=== PATIENT | female | born 1950 | race Caucasian/White ===

== ENCOUNTER 2024-01-18 08:23 | Inpatient (IN) | payer BC, MEDICARE ==
--- NOTE | 2024-01-18 08:43 | ED ---
General Adult HPI - General Chief complaint: Recheck/Abnormal Lab/Rx Stated complaint: low blood sugar Time Seen by Provider: 01/18/24 08:30 Source: EMS Mode of arrival: EMS - History of Present Illness Initial comments: Dictation was produced using [employer] dictation software. please excuse any grammatical, word or spelling errors. Chief Complaint: 73-year-old female with hypoglycemia History of Present Illness: Patient 73-year-old female she was found at home unresponsive. EMS was called. According to EMS they checked her sugar and it was in the 30s. Patient given full amp of dextrose with increase of glucose along with improvement of mentation. Patient still malaised and lethargic and is a poor historian at this time. According EMS patient has a history of insul in-dependent diabetes Unable to obtain ROS secondary to mental status - Related Data Home Medications Medication Instructions Recorded Confirmed Acetaminophen Tab [Tylenol Tab] 500 mg PO Q6HR PRN 01/18/24 01/18/24 Apixaban [Eliquis] 5 mg PO BID 01/18/24 01/18/24 Aspirin 81 mg PO DIRECTED 01/18/24 01/18/24 Canagliflozin [Invokana] 300 mg PO DAILY 01/18/24 01/18/24 Cholecalciferol [Vitamin D3 (25 25 mcg PO DAILY 01/18/24 01/18/24 Mcg = 1000 Iu)] Clopidogrel [Plavix] 75 mg PO DAILY 01/18/24 01/18/24 Fenofibrate Nanocrystallized 145 mg PO DAILY 01/18/24 01/18/24 [Fenofibrate] Flecainide Acetate [Tambocor] 100 mg PO BID 01/18/24 01/18/24 Folic Acid 1 mg PO DAILY 01/18/24 01/18/24 Furosemide [Lasix] 20 mg PO DAILY 01/18/24 01/18/24 Gabapentin [Neurontin] 200 mg PO HS 01/18/24 01/18/24 Insulin Glargine,Hum.rec.anlog 30 units SQ HS 01/18/24 01/18/24 [Lantus Solostar Pen] Insulin Lispro [humaLOG Kwikpen] 10 unit SQ AC-TID 01/18/24 01/18/24 Insulin Lispro [humaLOG Kwikpen] See Protocol SQ AC-TID 01/18/24 01/18/24 Latanoprost [Latanoprost 0.005%] 1 drop BOTH EYES HS 01/18/24 01/18/24 Losartan [Cozaar] 50 mg PO DAILY 01/18/24 01/18/24 Melatonin 10 mg PO HS 01/18/24 01/18/24 Metoprolol Succinate (ER) [Toprol 100 mg PO BID 01/18/24 01/18/24 Xl] Naloxone HCl [Narcan] 4 mg NASAL ONCE PRN 01/18/24 01/18/24 Nitroglycerin Sl Tabs [Nitrostat] 0.4 mg SUBLINGUAL Q5M PRN 01/18/24 01/18/24 Omeprazole [PriLOSEC] 20 mg PO AC-BRKFST 01/18/24 01/18/24 Potassium Chloride [Klor-Con M10] 10 meq PO DAILY 01/18/24 01/18/24 Sertraline [Zoloft] 100 mg PO DAILY 01/18/24 01/18/24 Simvastatin [Zocor] 20 mg PO HS 01/18/24 01/18/24 oxyCODONE-APAP 5-325MG [Percocet 1 tab PO DAILY 01/18/24 01/18/24 5-325 mg] Allergies Allergy/AdvReac Type Severity Reaction Status Date / Time codeine Allergy Rash/Hives Verified 01/18/24 10:10 iodine Allergy Rash/Hives Verified 01/18/24 10:10 Review of Systems ROS Statement: Those systems with pertinent positive or pertinent negative responses have been documented in the HPI. ROS Other: All systems not noted in ROS Statement are negative. Past Medical History Past Medical History: Atrial Fibrillation, Diabetes Mellitus, Hypertension Additional Past Medical History / Comment(s): extensive cardiac history per EMS Past Surgical History: No Surgical Hx Reported Past Psychological History: No Psychological Hx Reported Smoking Status: Former smoker Past Alcohol Use History: None Reported Past Drug Use History: None Reported General Exam - General Exam Comments Initial Comments: PHYSICAL EXAM: General Impression: Alert and oriented x3, lethargic HEENT: Normocephalic atraumatic, extra-ocular movements intact, pupils equal and reactive to light bilaterally, mucous membranes moist. Cardiovascular: Heart regular rate and rhythm Chest: Able to complete full sentences, no retractions, no tachypnea Abdomen: abdomen soft, non-tender, non-distended, no organomegaly Musculoskeletal: Pulses present and equal in all extremities, no peripheral edema Motor: no focal deficits noted Neurological: CN II-XII grossly intact, no focal motor or sensory deficits noted Skin: Intact with no visualized rashes Psych: Normal affect and mood Course Vital Signs 01/18/24 01/18/24 01/18/24 08:25 08:36 09:15 Temperature 93.7 F L Pulse Rate 90 86 74 Respiratory 18 20 20 Rate Blood Pressure 113/77 92/60 102/72 O2 Sat by Pulse 95 94 L 99 Oximetry 01/18/24 01/18/24 01/18/24 09:44 10:40 11:16 Temperature 94.5 F L 95.0 F L 95.7 F L Pulse Rate 89 85 71 Respiratory 20 20 20 Rate Blood Pressure 131/84 99/59 106/93 O2 Sat by Pulse 97 94 L 98 Oximetry EKG Findings - EKG Comments: EKG Findings:: My EKG interpretation: Ventricular rate 86, A-fib, left bundle branch block, QRS 150, QTc 485. No [place] prolongation, no QTC prolongation, no ST or T-wave changes noted. No EKG for comparison. Overall this EKG is nonspecific Medical Decision Making - Medical Decision Making Was pt. sent in by a medical professional or institution ([facility], CAD PROGRAMMER, urgent care, hospital, or snf...) When possible be specific @ -No Did you speak to anyone other than the patient for history (EMS, parent, family, police, friend...)? What history was obtained from this source @ -History obtained from EMS as described above Did you review nursing and triage notes (agree or disagree)? Why? @ -I reviewed and agree with nursing and triage notes Were old charts reviewed (outside hosp., previous admission, EMS record, old EKG, old radiological studies, urgent care reports/EKG's, snf records)? Report findings @ -No old charts were reviewed Differential Diagnosis (chest pain, altered mental status, abdominal pain women, abdominal pain men, vaginal bleeding, musculoskeletal, weakness, fever, dyspnea, syncope, headache, dizziness, GI bleed, back pain, seizure, CVA, palpatations, mental health)? @ -Serious bacterial illness, insulin overdose, SIRS EKG interpreted by me (3pts min.). @ -See above X-rays interpreted by me (1pt min.). @ -Chest x-ray shows mild CHF CT interpreted by me (1pt min.). @ -CT scan of the brain shows no acute processes U/S interpreted by me (1pt. min.). @ -None done What testing was considered but not performed or refused? (CT, X-rays, U/S, la bs)? Why? @ -None What meds were considered but not given or refused? Why? @ -None Was smoking cessation discussed for >3mins.? @ -No Were there social determinants of health that impacted care today? How? (Homelessness, low income, unemployed, alcoholism, drug addiction, transportation, low edu. Level, literacy, decrease access to med. care, retirement, rehab)? @ -No Was there de-escalation of care discussed even if they declined (Discuss DNR or withdrawal of care, Hospice)? DNR status @ -No What co-morbidities impacted this encounter? (DM, HTN, Smoking, COPD, CAD, Cancer, CVA, ARF, Chemo, Hep., AIDS, mental health diagnosis, sleep apnea, morbid obesity)? @ -See clinical panel Was patient admitted / discharged? Hospital course, mention meds given and route, prescriptions, significant lab abnormalities, going to OR and other pertinent info. @ -73-year-old female who is insulin-dependent diabetic presents to the emergency department after being found unresponsive. She found to be hypo glycemic. Patient given dextrose with improvement of mentation. Vital signs upon arrival are within acceptable limits. Blood glucose on arrival was 88. Patient's glucose began to diminish. Patient ultimately put on dextrose drip. Laboratory evaluation obtained. CBC is unremarkable. Metabolic panel is negative. Urinalysis positive for UTI. Viral testing negative. Patient given antibiotics. Did you discuss the management of the patient with other professionals (professionals i.e. , PA, CAD PROGRAMMER, lab, RT, psych nurse, social worker palliative care, rail car welder, teacher, anti air warfare operations officer, mattress spring encaser)? Give summary @ -Case discussed with hospitalist Was critical care preformed (if so, how long)? @ -Yes, 33 minutes for unresponsive and life-threatening hypoglycemia Undiagnosed new problem with uncertain prognosis? @ -No Drug Therapy requiring intensive monitoring for toxicity (Heparin, Nitro, Insulin, Cardizem)? @ -No Were any procedures done? @ -No Diagnosis/symptom? Acute, or Chronic, or Acute on Chronic? Uncomplicated (without systemic symptoms) or Complicated (systemic symptoms)? @ -Critical hypoglycemia Side effects of treatment? @ -No Exacerbation, Progression, or Severe Exacerbation? @ -No Poses a threat to life or bodily function? How? (Chest pain, [place], ND, pneumonia, PE, COPD, DKA, ARF, appy, cholecystitis, CVA, Diverticulitis, Homicidal, Suicidal, threat to staff... and all critical care pts) @ -yes - Lab Data Result diagrams: 01/18/24 08:36 01/18/24 08:36 Lab Results 01/18/24 01/18/24 01/18/24 Range/Units 08:35 08:35 08:36 WBC 3.2 L (3.8-10.6) k/uL RBC 4.47 (3.80-5.40) m/uL Hgb 11.4 (11.4-16.0) gm/dL Hct 38.8 (34.0-46.0) % MCV 86.8 (80.0-100.0) fL MCH 25.6 (25.0-35.0) pg MCHC 29.5 L (31.0-37.0) g/dL RDW 18.6 H (11.5-15.5) % Plt Count 236 (150-450) k/uL MPV 7.5 Neutrophils % 75 % Lymphocytes % 12 % Monocytes % 10 % Eosinophils % 1 % Basophils % 1 % Neutrophils # 2.4 (1.3-7.7) k/uL Lymphocytes # 0.4 L (1.0-4.8) k/uL Monocytes # 0.3 (0-1.0) k/uL Eosinophils # 0.0 (0-0.7) k/uL Basophils # 0.0 (0-0.2) k/uL Hypochromasia Marked Anisocytosis Slight PT (10.0-12.5) sec INR (<1.2) APTT (22.0-30.0) sec Sodium (137-145) mmol/L Potassium (3.5-5.1) mmol/L Chloride (98-107) mmol/L Carbon Dioxide (22-30) mmol/L Anion Gap mmol/L BUN (7-17) mg/dL Creatinine (0.52-1.04) mg/dL Est GFR (CKD-EPI)AfAm (>60 ml/min/1.73 sqM) Est GFR (CKD-EPI)NonAf (>60 ml/min/1.73 sqM) Glucose (74-99) mg/dL POC Glucose (mg/dL) (70-110) mg/dL POC Glu Tire Regrooving Machine Operator ID Plasma Lactic Acid Frandy (0.7-2.0) mmol/L Calcium (8.4-10.2) mg/dL Magnesium (1.6-2.3) mg/dL Total Bilirubin (0.2-1.3) mg/dL AST (14-36) U/L ALT (4-34) U/L Alkaline Phosphatase (38-126) U/L Troponin I (0.000-0.034) ng/mL Total Protein (6.3-8.2) g/dL Albumin (3.5-5.0) g/dL Urine Color Yellow Urine Appearance Cloudy H (Clear) Urine pH 6.0 (5.0-8.0) Ur Specific [place] 1.024 (1.001-1.035) Urine Protein 1+ H (Negative) Urine Glucose (UA) 2+ H (Negative) Urine Ketones Negative (Negative) Urine Blood Small H (Negative) Urine Nitrite Negative (Negative) Urine Bilirubin Negative (Negative) Urine Urobilinogen <2.0 (<2.0) mg/dL Ur Leukocyte Esterase Large H (Negative) Urine RBC 19 H (0-5) /hpf Urine WBC >182 H (0-5) /hpf Hyaline Casts 8 H (0-2) /lpf Urine Mucus Rare H (None) /hpf Urine Yeast (Budding) Many H (None) /hpf Influenza Type A (PCR) Not Detected (Not Detectd) Influenza Type B (PCR) Not Detected (Not Detectd) RSV (PCR) Not Detected (Not Detectd) SARS-CoV-2 (PCR) Not Detected (Not Detectd) 01/18/24 01/18/24 01/18/24 Range/Units 08:36 08:36 08:36 WBC (3.8-10.6) k/uL RBC (3.80-5.40) m/uL Hgb (11.4-16.0) gm/dL Hct (34.0-46.0) % MCV (80.0-100.0) fL MCH (25.0-35.0) pg MCHC (31.0-37.0) g/dL RDW (11.5-15.5) % Plt Count (150-450) k/uL MPV Neutrophils % % Lymphocytes % % Monocytes % % Eosinophils % % Basophils % % Neutrophils # (1.3-7.7) k/uL Lymphocytes # (1.0-4.8) k/uL Monocytes # (0-1.0) k/uL Eosinophils # (0-0.7) k/uL Basophils # (0-0.2) k/uL Hypochromasia Anisocytosis PT 13.8 H (10.0-12.5) sec INR 1.3 H (<1.2) APTT 28.5 (22.0-30.0) sec Sodium 142 (137-145) mmol/L Potassium 4.2 (3.5-5.1) mmol/L Chloride 110 H (98-107) mmol/L Carbon Dioxide 28 (22-30) mmol/L Anion Gap 4 mmol/L BUN 47 H (7-17) mg/dL Creatinine 1.04 (0.52-1.04) mg/dL Est GFR (CKD-EPI)AfAm 63 (>60 ml/min/1.73 sqM) Est GFR (CKD-EPI)NonAf 54 (>60 ml/min/1.73 sqM) Glucose 87 (74-99) mg/dL POC Glucose (mg/dL) (70-110) mg/dL POC Glu Tire Regrooving Machine Operator ID Plasma Lactic Acid Frandy 1.0 (0.7-2.0) mmol/L Calcium 8.9 (8.4-10.2) mg/dL Magnesium 1.9 (1.6-2.3) mg/dL Total Bilirubin 0.7 (0.2-1.3) mg/dL AST 48 H (14-36) U/L ALT 17 (4-34) U/L Alkaline Phosphatase 177 H (38-126) U/L Troponin I (0.000-0.034) ng/mL Total Protein 6.1 L (6.3-8.2) g/dL Albumin 3.1 L (3.5-5.0) g/dL Urine Color Urine Appearance (Clear) Urine pH (5.0-8.0) Ur Specific [place] (1.001-1.035) Urine Protein (Negative) Urine Glucose (UA) (Negative) Urine Ketones (Negative) Urine Blood (Negative) Urine Nitrite (Negative) Urine Bilirubin (Negative) Urine Urobilinogen (<2.0) mg/dL Ur Leukocyte Esterase (Negative) Urine RBC (0-5) /hpf Urine WBC (0-5) /hpf Hyaline Casts (0-2) /lpf Urine Mucus (None) /hpf Urine Yeast (Budding) (None) /hpf Influenza Type A (PCR) (Not Detectd) Influenza Type B (PCR) (Not Detectd) RSV (PCR) (Not Detectd) SARS-CoV-2 (PCR) (Not Detectd) 01/18/24 01/18/24 01/18/24 Range/Units 08:36 08:38 08:50 WBC (3.8-10.6) k/uL RBC (3.80-5.40) m/uL Hgb (11.4-16.0) gm/dL Hct (34.0-46.0) % MCV (80.0-100.0) fL MCH (25.0-35.0) pg MCHC (31.0-37.0) g/dL RDW (11.5-15.5) % Plt Count (150-450) k/uL MPV Neutrophils % % Lymphocytes % % Monocytes % % Eosinophils % % Basophils % % Neutrophils # (1.3-7.7) k/uL Lymphocytes # (1.0-4.8) k/uL Monocytes # (0-1.0) k/uL Eosinophils # (0-0.7) k/uL Basophils # (0-0.2) k/uL Hypochromasia Anisocytosis PT (10.0-12.5) sec INR (<1.2) APTT (22.0-30.0) sec Sodium (137-145) mmol/L Potassium (3.5-5.1) mmol/L Chloride (98-107) mmol/L Carbon Dioxide (22-30) mmol/L Anion Gap mmol/L BUN (7-17) mg/dL Creatinine (0.52-1.04) mg/dL Est GFR (CKD-EPI)AfAm (>60 ml/min/1.73 sqM) Est GFR (CKD-EPI)NonAf (>60 ml/min/1.73 sqM) Glucose (74-99) mg/dL POC Glucose (mg/dL) 88 90 (70-110) mg/dL POC Glu Tire Regrooving Machine Operator Ramiro Del Angel IgnacioRamiro begum Plasma Lactic Acid Frandy (0.7-2.0) mmol/L Calcium (8.4-10.2) mg/dL Magnesium (1.6-2.3) mg/dL Total Bilirubin (0.2-1.3) mg/dL AST (14-36) U/L ALT (4-34) U/L Alkaline Phosphatase (38-126) U/L Troponin I <0.012 (0.000-0.034) ng/mL Total Protein (6.3-8.2) g/dL Albumin (3.5-5.0) g/dL Urine Color Urine Appearance (Clear) Urine pH (5.0-8.0) Ur Specific [place] (1.001-1.035) Urine Protein (Negative) Urine Glucose (UA) (Negative) Urine Ketones (Negative) Urine Blood (Negative) Urine Nitrite (Negative) Urine Bilirubin (Negative) Urine Urobilinogen (<2.0) mg/dL Ur Leukocyte Esterase (Negative) Urine RBC (0-5) /hpf Urine WBC (0-5) /hpf Hyaline Casts (0-2) /lpf Urine Mucus (None) /hpf Urine Yeast (Budding) (None) /hpf Influenza Type A (PCR) (Not Detectd) Influenza Type B (PCR) (Not Detectd) RSV (PCR) (Not Detectd) SARS-CoV-2 (PCR) (Not Detectd) 01/18/24 01/18/24 Range/Units 09:23 10:42 WBC (3.8-10.6) k/uL RBC (3.80-5.40) m/uL Hgb (11.4-16.0) gm/dL Hct (34.0-46.0) % MCV (80.0-100.0) fL MCH (25.0-35.0) pg MCHC (31.0-37.0) g/dL RDW (11.5-15.5) % Plt Count (150-450) k/uL MPV Neutrophils % % Lymphocytes % % Monocytes % % Eosinophils % % Basophils % % Neutrophils # (1.3-7.7) k/uL Lymphocytes # (1.0-4.8) k/uL Monocytes # (0-1.0) k/uL Eosinophils # (0-0.7) k/uL Basophils # (0-0.2) k/uL Hypochromasia Anisocytosis PT (10.0-12.5) sec INR (<1.2) APTT (22.0-30.0) sec Sodium (137-145) mmol/L Potassium (3.5-5.1) mmol/L Chloride (98-107) mmol/L Carbon Dioxide (22-30) mmol/L Anion Gap mmol/L BUN (7-17) mg/dL Creatinine (0.52-1.04) mg/dL Est GFR (CKD-EPI)AfAm (>60 ml/min/1.73 sqM) Est GFR (CKD-EPI)NonAf (>60 ml/min/1.73 sqM) Glucose (74-99) mg/dL POC Glucose (mg/dL) 151 H 105 (70-110) mg/dL POC Glu Tire Regrooving Machine Operator ID Ramiro Ignacio Cassandra Plasma Lactic Acid Frandy (0.7-2.0) mmol/L Calcium (8.4-10.2) mg/dL Magnesium (1.6-2.3) mg/dL Total Bilirubin (0.2-1.3) mg/dL AST (14-36) U/L ALT (4-34) U/L Alkaline Phosphatase (38-126) U/L Troponin I (0.000-0.034) ng/mL Total Protein (6.3-8.2) g/dL Albumin (3.5-5.0) g/dL Urine Color Urine Appearance (Clear) Urine pH (5.0-8.0) Ur Specific [place] (1.001-1.035) Urine Protein (Negative) Urine Glucose (UA) (Negative) Urine Ketones (Negative) Urine Blood (Negative) Urine Nitrite (Negative) Urine Bilirubin (Negative) Urine Urobilinogen (<2.0) mg/dL Ur Leukocyte Esterase (Negative) Urine RBC (0-5) /hpf Urine WBC (0-5) /hpf Hyaline Casts (0-2) /lpf Urine Mucus (None) /hpf Urine Yeast (Budding) (None) /hpf Influenza Type A (PCR) (Not Detectd) Influenza Type B (PCR) (Not Detectd) RSV (PCR) (Not Detectd) SARS-CoV-2 (PCR) (Not Detectd) Disposition Clinical Impression: Hypoglycemia Disposition: ADMITTED IP TO THIS [facility] Condition: Fair Is patient prescribed a controlled substance at d/c from ED?: No Referrals: Nonstaff,Physician [REFERRING] - 1-2 days Decision Time: 11:38
[2024-01-18 08:44] LABS: Anisocytosis Slight; Basophils % (A) 1 %; Eosinophils % (A) 1 %; HCT 38.8 % (34.0-46.0); HGB 11.4 gm/dL (11.4-16.0); Hypochromasia Marked; Lymphocytes # (A) 0.4 k/uL (1.0-4.8); Lymphocytes % (A) 12 %; MCH 25.6 pg (25.0-35.0); MCHC 29.5 g/dL (31.0-37.0); MCV 86.8 fL (80.0-100.0); Mean Platelet Volume 7.5; Monocytes # (A) 0.3 k/uL (0-1.0); Monocytes % (A) 10 %; Neutrophils # (A) 2.4 k/uL (1.3-7.7); Neutrophils % (A) 75 %; Platelet Count 236 k/uL (150-450); RBC 4.47 m/uL (3.80-5.40); RDW 18.6 % (11.5-15.5); WBC 3.2 k/uL (3.8-10.6)
[2024-01-18 08:47] LABS: Glucose,Whole Blood 88 mg/dL (70-110)
[2024-01-18 08:49] LABS: INR 1.3 (<1.2); Partial Thromboplastin Time 28.5 sec (22.0-30.0); Prothrombin Time 13.8 sec (10.0-12.5)
[2024-01-18 08:51] LABS: Glucose,Whole Blood 90 mg/dL (70-110)
[2024-01-18] MEDS: DEXTROSE 10% IN WATER 1,000 ML with SODIUM CHLORIDE 4MEQ/ML VIAL 153.8 MEQ IV SCH (08:54)
[2024-01-18 08:58] LABS: ALT 17 U/L (4-34); AST 48 U/L (14-36); African American GFR (CKD) 63 (>60 ml/min/1.73 sqM); Albumin 3.1 g/dL (3.5-5.0); Alkaline Phosphatase 177 U/L (38-126); Anion Gap 4 mmol/L; Blood Urea Nitrogen 47 mg/dL (7-17); Calcium 8.9 mg/dL (8.4-10.2); Carbon Dioxide 28 mmol/L (22-30); Chloride 110 mmol/L (98-107); Glucose 87 mg/dL (74-99); Magnesium 1.9 mg/dL (1.6-2.3); Non-African American GFR(CKD) 54 (>60 ml/min/1.73 sqM); Potassium 4.2 mmol/L (3.5-5.1); Sodium 142 mmol/L (137-145); Total Bilirubin 0.7 mg/dL (0.2-1.3); Total Protein 6.1 g/dL (6.3-8.2)
[2024-01-18 09:29] LABS: Appearance,Urine Cloudy (Clear); Bilirubin,Urine Negative (Negative); Blood,Urine Small (Negative); Budding Yeast,Urine Many /hpf; Color,Urine Yellow; Glucose,Urine (UA) 2+ (Negative); Hyaline Casts,Urine 8 /lpf (0-2); Ketones,Urine Negative (Negative); Leukocyte Esterase,Urine Large (Negative); Mucus,Urine Rare /hpf; Nitrite,Urine Negative (Negative); Protein,Urine 1+ (Negative); RBC,Urine 19 /hpf (0-5); Specific Gravity,Urine 1.024 (1.001-1.035); Urobilinogen,Urine <2.0 mg/dL (<2.0); WBC,Urine >182 /hpf (0-5)
[2024-01-18 09:29] LABS: Glucose,Whole Blood 151 mg/dL (70-110)
--- NOTE | 2024-01-18 09:41 | CT ---
EXAMINATION TYPE: CT brain wo con DATE OF EXAM: 01/18/2024 COMPARISON: None HISTORY: hypoglycemia CT DLP: [address] of the brain was performed. The ventricles, basal cisterns and sulci overlying the cerebral convexities demonstrate mild enlargem ent. There is no evidence for intracranial hemorrhage or sulcal effacement. There is decreased attenuation about the periventricular white matter and deep white matter of both c erebral hemispheres, compatible with chronic small vessel ischemia. Differential diagnosis does inclu de demyelination. No mass effects are seen.No midline shift. Osseous calvarium is intact. If symptoms persist consider MRI. IMPRESSION: 1. Age related atrophic and chronic small vessel ischemic change without acute intracranial process s een at this time.
--- NOTE | 2024-01-18 09:47 | XR ---
EXAMINATION TYPE: XR chest 2V DATE OF EXAM: 01/18/2024 COMPARISON: None HISTORY: 73-year-old female hypoglycemia TECHNIQUE: AP and lateral views FINDINGS: Prominent rightward patient rotation also appears a normal cardiac mediastinal contours. There may be mild or moderate cardiomegaly. Overall low lung volumes with diffuse interstitial opacities. Small t o moderate right and small left pleural effusions with adjacent basilar opacity. IMPRESSION: Limited by hypoventilatory changes and rotated exam. There may be mild to moderate cardiomegaly and s ome interstitial pulmonary edema. Dmiar-rn-ndemomso right and small left pleural effusions. Correlate for CHF.
[2024-01-18 10:43] LABS: Glucose,Whole Blood 105 mg/dL (70-110)
[2024-01-18] MEDS: cefTRIAXone IN SWFI 1,000 MG/10 ML SYRINGE IVP STA (10:44)
[2024-01-18] MEDS ORDERED: NALOXONE 0.4 MG/ML 1 ML VIAL IV PRN (11:32)
[2024-01-18 12:03] LABS: Glucose,Whole Blood 122 mg/dL (70-110)
[2024-01-18] MEDS ORDERED: DEXTROSE 50% SYRINGE 50 ML IVP PRN ×4 (12:17→17:22)
[2024-01-18] MEDS ORDERED: NON FORMULARY DRUG (Insulin Lispro [Humalog Kwikpen] 100 UNIT/ML Insuln.Pen) SQ SCH (12:30)
[2024-01-18 13:36] LABS: Glucose,Whole Blood 137 mg/dL (70-110)
[2024-01-18] MEDS: INSULIN ASPART (NovoLOG) 100 UNIT/ML VIAL SQ SCH ×2 (13:37→13:54)
[2024-01-18] MEDS: SODIUM CHLORIDE 0.9% 1,000 ML IV SCH (13:50)
[2024-01-18 16:41] LABS: Glucose,Whole Blood 235 mg/dL (70-110)
[2024-01-18] MEDS ORDERED: NON FORMULARY DRUG (Naloxone Hcl [Narcan] 4 MG Each) NASAL PRN (17:52)
[2024-01-18] MEDS ORDERED: NITROGLYCERIN SL TABS 0.4 MG TAB SUBLINGUAL PRN (17:52)
--- NOTE | 2024-01-18 17:57 | P.HPIM ---
History of Present Illness This is a pleasant 73 years old female with past medical history of diabetes mellitus, hypertension, atrial fibrillation on blood thinner at home Information obtained by the help of at bedside. Patient took her 40 units of long-acting insulin last night. This morning her found her unresponsive, he tried to wake her up with no help. He checked her sugar and it was low at 46, he called EMS who checked her sugar it was also low at 53. Patient was resuscitated. And she started waking up at home. Currently patient awake alert and oriented and relaxed and smiling. She denies specific complaint for me. No chest pain or dyspnea. No change in urine or bowel habits. No dysuria or change in frequency but patient has Zuniga catheter Patient also complaining from some diarrhea but no abdominal pain or tenderness and her abdomen looks soft She denies smoking alcohol or illicit drugs She is not on oxygen at home Patient had low-grade temperature in the emergency room and because of that she had a Zuniga catheter placed as per staff. I talked to the patient to discontinue Zuniga catheter but she wants to wait for now She had low-grade temperature but now improved Labs reviewed showing unremarkable CBC, BMP LFT, INR and troponin WBC slightly low at 3.1 Urine analysis is suspicious for infection Urine culture is pending Chest x-ray showing cardiomegaly with possible pulmonary vascular congestion but hypoventilated lung CT of the brain is negative for acute process EKG showing A-fib with a rate of [address]-T changes and QTc 483 Patient's wants to DNR as she states Review of Systems Review of systems CONSTITUTIONAL: No fever, no malaise, no fatigue. HEENT: No recent visual problems or hearing problems. Denied any sore throat. CARDIOVASCULAR: No orthopnea, PND, no palpitations, no syncope. PULMONARY: No shortness of breath, no cough, no hemoptysis. GASTROINTESTINAL: No diarrhea, no nausea, no vomiting, no abdominal pain. Normoactive bowel sounds. NEUROLOGICAL: No headaches, no weakness, no numbness. HEMATOLOGICAL: Denies any bleeding or petechiae. GENITOURINARY: Denies any burning micturition, frequency, or urgency. MUSCULOSKELETAL/RHEUMATOLOGICAL: Denies any joint pain, swelling, or any muscle pain. ENDOCRINE: Denies any polyuria or polydipsia. Past Medical History Past Medical History: Atrial Fibrillation, Diabetes Mellitus, Hypertension Additional Past Medical History / Comment(s): extensive cardiac history per EMS History of Any Multi-Drug Resistant Organisms: None Reported Past Surgical History: No Surgical Hx Reported Past Psychological History: No Psychological Hx Reported Smoking Status: Former smoker Past Alcohol Use History: None Reported Past Drug Use History: None Reported Medications and Allergies Home Medications Medication Instructions Recorded Confirmed Type Acetaminophen Tab [Tylenol Tab] 500 mg PO Q6HR PRN 01/18/24 01/18/24 History Apixaban [Eliquis] 5 mg PO BID 01/18/24 01/18/24 History Aspirin 81 mg PO DIRECTED 01/18/24 01/18/24 History Canagliflozin [Invokana] 300 mg PO DAILY 01/18/24 01/18/24 History Cholecalciferol [Vitamin D3 (25 25 mcg PO DAILY 01/18/24 01/18/24 History Mcg = 1000 Iu)] Clopidogrel [Plavix] 75 mg PO DAILY 01/18/24 01/18/24 History Fenofibrate Nanocrystallized 145 mg PO DAILY 01/18/24 01/18/24 History [Fenofibrate] Flecainide Acetate [Tambocor] 100 mg PO BID 01/18/24 01/18/24 History Folic Acid 1 mg PO DAILY 01/18/24 01/18/24 History Furosemide [Lasix] 20 mg PO DAILY 01/18/24 01/18/24 History Gabapentin [Neurontin] 200 mg PO HS 01/18/24 01/18/24 History Insulin Glargine,Hum.rec.anlog 30 units SQ HS 01/18/24 01/18/24 History [Lantus Solostar Pen] Insulin Lispro [humaLOG Kwikpen] 10 unit SQ AC-TID 01/18/24 01/18/24 History Insulin Lispro [humaLOG Kwikpen] See Protocol SQ AC-TID 01/18/24 01/18/24 History Latanoprost [Latanoprost 0.005%] 1 drop BOTH EYES HS 01/18/24 01/18/24 History Losartan [Cozaar] 50 mg PO DAILY 01/18/24 01/18/24 History Melatonin 10 mg PO HS 01/18/24 01/18/24 History Metoprolol Succinate (ER) [Toprol 100 mg PO BID 01/18/24 01/18/24 History Xl] Naloxone HCl [Narcan] 4 mg NASAL ONCE PRN 01/18/24 01/18/24 History Nitroglycerin Sl Tabs [Nitrostat] 0.4 mg SUBLINGUAL Q5M PRN 01/18/24 01/18/24 History Omeprazole [PriLOSEC] 20 mg PO AC-BRKFST 01/18/24 01/18/24 History Potassium Chloride [Klor-Con M10] 10 meq PO DAILY 01/18/24 01/18/24 History Sertraline [Zoloft] 100 mg PO DAILY 01/18/24 01/18/24 History Simvastatin [Zocor] 20 mg PO HS 01/18/24 01/18/24 History oxyCODONE-APAP 5-325MG [Percocet 1 tab PO DAILY 01/18/24 01/18/24 History 5-325 mg] Allergies Allergy/AdvReac Type Severity Reaction Status Date / Time codeine Allergy Rash/Hives Verified 01/18/24 10:10 iodine Allergy Rash/Hives Verified 01/18/24 10:10 Physical Exam Vitals: Vital Signs Temp Pulse Pulse Resp BP BP Pulse Ox 01/18/24 14:58 97.8 F 98 18 125/80 98 01/18/24 14:18 98.6 F 98 20 118/72 100 01/18/24 13:51 98.2 F 01/18/24 13:29 97.9 F 88 18 106/55 96 01/18/24 12:43 97 01/18/24 11:16 95.7 F L 71 20 106/93 98 01/18/24 10:40 95.0 F L 85 20 99/59 94 L 01/18/24 09:44 94.5 F L 89 20 131/84 97 01/18/24 09:15 93.7 F L 74 20 102/72 99 01/18/24 08:36 86 20 92/60 94 L 01/18/24 08:25 90 18 113/77 95 Intake and Output 01/18/24 01/18/24 01/18/24 06:59 14:59 22:59 Other: # Bowel Movements 1 Weight 90.265 kg -GENERAL: The patient is alert and oriented x3, not in any acute distress. Well developed, well nourished. Obese HEENT: Pupils are round and equally reacting to light. EOMI. No scleral icterus. No conjunctival pallor. Normocephalic, atraumatic. No pharyngeal erythema. No thyromegaly. CARDIOVASCULAR: S1 and S2 present. No murmurs, rubs, or gallops. PULMONARY: Chest is clear to auscultation, no wheezing , no crackles. ABDOMEN: Soft, nontender, nondistended, normoactive bowel sounds. No palpable organomegaly. MUSCULOSKELETAL: No joint swelling or deformity. EXTREMITIES: No cyanosis, clubbing, or pedal edema. NEUROLOGICAL: Gross neurological examination did not reveal any focal deficits. SKIN: No rashes. no petechiae. Results CBC & Chem 7: 01/18/24 08:36 01/18/24 08:36 Labs: Abnormal Lab Results - Last 24 Hours (Table) 01/18/24 01/18/24 01/18/24 Range/Units 08:35 08:36 08:36 WBC 3.2 L (3.8-10.6) k/uL MCHC 29.5 L (31.0-37.0) g/dL RDW 18.6 H (11.5-15.5) % Lymphocytes # 0.4 L (1.0-4.8) k/uL PT 13.8 H (10.0-12.5) sec INR 1.3 H (<1.2) Chloride (98-107) mmol/L BUN (7-17) mg/dL POC Glucose (mg/dL) (70-110) mg/dL AST (14-36) U/L Alkaline Phosphatase (38-126) U/L Total Protein (6.3-8.2) g/dL Albumin (3.5-5.0) g/dL Urine Appearance Cloudy H (Clear) Urine Protein 1+ H (Negative) Urine Glucose (UA) 2+ H (Negative) Urine Blood Small H (Negative) Ur Leukocyte Esterase Large H (Negative) Urine RBC 19 H (0-5) /hpf Urine WBC >182 H (0-5) /hpf Hyaline Casts 8 H (0-2) /lpf Urine Mucus Rare H (None) /hpf Urine Yeast (Budding) Many H (None) /hpf 01/18/24 01/18/24 01/18/24 Range/Units 08:36 09:23 12:01 WBC (3.8-10.6) k/uL MCHC (31.0-37.0) g/dL RDW (11.5-15.5) % Lymphocytes # (1.0-4.8) k/uL PT (10.0-12.5) sec INR (<1.2) Chloride 110 H (98-107) mmol/L BUN 47 H (7-17) mg/dL POC Glucose (mg/dL) 151 H 122 H (70-110) mg/dL AST 48 H (14-36) U/L Alkaline Phosphatase 177 H (38-126) U/L Total Protein 6.1 L (6.3-8.2) g/dL Albumin 3.1 L (3.5-5.0) g/dL Urine Appearance (Clear) Urine Protein (Negative) Urine Glucose (UA) (Negative) Urine Blood (Negative) Ur Leukocyte Esterase (Negative) Urine RBC (0-5) /hpf Urine WBC (0-5) /hpf Hyaline Casts (0-2) /lpf Urine Mucus (None) /hpf Urine Yeast (Budding) (None) /hpf 01/18/24 01/18/24 Range/Units 13:35 16:39 WBC (3.8-10.6) k/uL MCHC (31.0-37.0) g/dL RDW (11.5-15.5) % Lymphocytes # (1.0-4.8) k/uL PT (10.0-12.5) sec INR (<1.2) Chloride (98-107) mmol/L BUN (7-17) mg/dL POC Glucose (mg/dL) 137 H 235 H (70-110) mg/dL AST (14-36) U/L Alkaline Phosphatase (38-126) U/L Total Protein (6.3-8.2) g/dL Albumin (3.5-5.0) g/dL Urine Appearance (Clear) Urine Protein (Negative) Urine Glucose (UA) (Negative) Urine Blood (Negative) Ur Leukocyte Esterase (Negative) Urine RBC (0-5) /hpf Urine WBC (0-5) /hpf Hyaline Casts (0-2) /lpf Urine Mucus (None) /hpf Urine Yeast (Budding) (None) /hpf Thrombosis Risk Factor Assmnt - Choose All That Apply Any of the Below Risk Factors Present?: No Other Risk Factors: Yes Each Risk Factor Represents 2 Points: Age 61-74 years Thrombosis Risk Factor Assessment Total Risk Factor Score: 2 Thrombosis Risk Factor Assessment Level: Low Risk Assessment and Plan Assessment: Diabetes mellitus with hyperglycemia Metabolic/toxic encephalopathy secondary to above improved Possible acute urinary tract infection Chronic A-fib on Eliquis at home, currently rate controlled Hyperlipidemia Hypertension Coronary artery disease Plan: Continue with aspirin and Plavix Continue with Eliquis Lower the dose of long-acting insulin 40 units down to 20 units, continue with insulin sliding scale Check hemoglobin A1c Continue with D10 W for now Resume diet Follow-up urine culture, continue with Rocephin for now Patient currently on Zuniga catheter, I asked the patient to discontinue and patient prefers to wait Labs and medication were reviewed.. Continue same treatment. Continue with symptomatic treatment. Resume home medication. Monitor labs and vitals. DVT and GI prophylaxis. Further recommendations as per clinical course of the patient DVT prophylaxis: Eliquis GI Prophylaxis: Ppi PT/OT: Pending Prognosis is guarded
[2024-01-18] MEDS ORDERED: ASPIRIN 81 MG PO SCH (18:00)
[2024-01-18 20:50] LABS: Glucose,Whole Blood 191 mg/dL (70-110)
[2024-01-18] MEDS: MELATONIN 5 MG TABLET PO SCH (20:59)
[2024-01-18] MEDS: GABAPENTIN 100 MG CAP PO SCH (20:59)
[2024-01-18] MEDS: INSULIN DETEMIR (LEVEMIR) 100 UNIT/ML SYR SQ SCH (20:59)
[2024-01-18] MEDS: APIXABAN 5 MG TAB PO SCH (20:59)
[2024-01-18] MEDS: METOPROLOL SUCCINATE (ER) 100 MG TAB.ER.24H PO SCH (20:59)
[2024-01-18] MEDS: FLECAINIDE 50 MG TAB PO SCH (20:59)
[2024-01-18] MEDS: LATANOPROST 0.005% OPHTH DROPS 2.5 ML BTL BOTH EYES SCH (21:00)
[2024-01-18] MEDS ORDERED: INSULIN DETEMIR (LEVEMIR) 100 UNIT/ML SYR SQ SCH (21:00)
[2024-01-19 01:59] LABS: Glucose,Whole Blood 108 mg/dL (70-110)
[2024-01-19 05:49] LABS: Glucose,Whole Blood 67 mg/dL (70-110)
[2024-01-19 05:49] LABS: Glucose,Whole Blood 68 mg/dL (70-110)
[2024-01-19 06:03] LABS: Glucose,Whole Blood 68 mg/dL (70-110)
[2024-01-19 06:19] LABS: Glucose,Whole Blood 85 mg/dL (70-110)
[2024-01-19] MEDS: FUROSEMIDE 20 MG TAB PO SCH (08:31)
[2024-01-19] MEDS: ACETAMINOPHEN TAB 500 MG TAB PO PRN (08:31)
[2024-01-19] MEDS: CLOPIDOGREL 75 MG TAB PO SCH (08:31)
[2024-01-19] MEDS: FOLIC ACID 1 MG TAB PO SCH (08:31)
[2024-01-19] MEDS: LOSARTAN 50 MG TAB PO SCH (08:31)
[2024-01-19] MEDS: SERTRALINE 100 MG TAB PO SCH (08:31)
[2024-01-19] MEDS: CHOLECALCIFEROL 25 MCG (1000 IU) TABLET PO SCH (08:31)
[2024-01-19] MEDS: PANTOPRAZOLE 40 MG/10 ML VIAL IVP SCH (08:32)
[2024-01-19 10:36] LABS: Basophils # (A) 0.05 X 10*3/uL (0.00-0.10); Basophils % (A) 0.9 %; Eosinophils # (A) 0.14 X 10*3/uL (0.04-0.35); Eosinophils % (A) 2.4 %; HCT 37.4 % (37.2-46.3); HGB 11.1 g/dL (12.0-15.0); Lymphocytes # (A) 1.25 X 10*3/uL (0.90-5.00); Lymphocytes % (A) 21.3 %; MCH 24.8 pg (27.0-32.0); MCHC 29.7 g/dL (32.0-37.0); MCV 83.5 FL (80.0-97.0); Monocytes % (A) 18.7 %; NRBC Per 100 WBC 0 X 10*3/uL (0.00-0.01); Neutrophils # (A) 3.32 X 10*3/uL (1.80-7.70); Neutrophils % (A) 56.5 %; Platelet Count 224 X 10*3/uL (140-440); RBC 4.48 X 10*6/uL (4.10-5.20); RDW 19.7 % (11.5-14.5); WBC 5.87 X 10*3/uL (4.50-10.00)
[2024-01-19 10:55] LABS: Blood Urea Nitrogen 33.9 mg/dL (9.0-27.0); Calcium 8.8 mg/dL (8.7-10.3); Carbon Dioxide 25.5 mmol/L (21.6-31.8); Chloride 108 mmol/L (96-109); Glucose 85 mg/dL (70-110); Potassium 4.5 mmol/L (3.5-5.5); Sodium 143 mmol/L (135-145)
[2024-01-19 11:53] LABS: Glucose,Whole Blood 52 mg/dL (70-110)
[2024-01-19 12:25] LABS: Glucose,Whole Blood 85 mg/dL (70-110)
--- NOTE | 2024-01-19 12:43 | P.PN ---
Subjective This is a pleasant 73 years old female with past medical history of diabetes mellitus, hypertension, atrial fibrillation on blood thinner at home Information obtained by the help of at bedside. Patient took her 40 units of long-acting insulin last night. This morning her found her unresponsive, he tried to wake her up with no help. He checked her sugar and it was low at 46, he called EMS who checked her sugar it was also low at 53. Patient was resuscitated. And she started waking up at home. Currently patient awake alert and oriented and relaxed and smiling. She denies specific complaint for me. No chest pain or dyspnea. No change in urine or bowel habits. No dysuria or change in frequency but patient has Zuniga catheter Patient also complaining from some diarrhea but no abdominal pain or tenderness and her abdomen looks soft She denies smoking alcohol or illicit drugs She is not on oxygen at home Patient had low-grade temperature in the emergency room and because of that she had a Zuniga catheter placed as per staff. I talked to the patient to discontinue Zuniga catheter but she wants to wait for now She had low-grade temperature but now improved Labs reviewed showing unremarkable CBC, BMP LFT, INR and troponin WBC slightly low at 3.1 Urine analysis is suspicious for infection Urine culture is pending Chest x-ray showing cardiomegaly with possible pulmonary vascular congestion but hypoventilated lung CT of the brain is negative for acute process EKG showing A-fib with a rate of [address]-T changes and QTc 483 Patient's wants to DNR as she states 01/18 Patient is awake and alert She denies any specific symptom no chest pain no dyspnea She denies urinary symptoms. The suspicion of UTI is low and review of no fever or leukocytosis Follow-up urine culture will keep monitoring while off antibiotic for now. Blood culture is pending as well Yesterday we cannot have her Levemir 40 units down to 20 units, this morning her sugar is still 50s to 60s therefore we are going to lower the dose of Levemir to 10 units. Her hemoglobin A1c is elevated though at 8.7% Patient might benefit from NovoLog with meals as well as endocrinology follow-up as an outpatient. Contact information for Dr. rollins of the bonding agent is provided in her discharge instruction She is continued on Eliquis PT/OT recommended subacute rehab I discussed the case with the patient in details she was reluctant to go to rehab but now she might consider it and she wants to talk to the social insurance administrator. Review of systems CONSTITUTIONAL: No fever, no malaise, no fatigue. HEENT: No recent visual problems or hearing problems. Denied any sore throat. CARDIOVASCULAR: No orthopnea, PND, no palpitations, no syncope. PULMONARY: No shortness of breath, no cough, no hemoptysis. GASTROINTESTINAL: No diarrhea, no nausea, no vomiting, no abdominal pain. Normoactive bowel sounds. NEUROLOGICAL: No headaches, no weakness, no numbness. Active Medications Generic Name Dose Route Start Last Admin Trade Name Freq PRN Reason Stop Dose Admin Acetaminophen 500 mg 01/18/24 17:52 01/19/24 08:31 Acetaminophen Tab 500 Mg Tab PO 500 mg Q6HR PRN Administration Pain Apixaban 5 mg 01/18/24 21:00 01/19/24 08:31 Apixaban 5 Mg Tab PO 5 mg BID DORITA Administration Protocol Cholecalciferol 25 mcg 01/19/24 09:00 01/19/24 08:31 Cholecalciferol 25 Mcg (1000 Iu) Tablet PO 25 mcg DAILY DORITA Administration Clopidogrel Bisulfate 75 mg 01/19/24 09:00 01/19/24 08:31 Clopidogrel 75 Mg Tab PO 75 mg DAILY DORITA Administration Dextrose/Water 25 ml 01/18/24 17:22 Dextrose 50% Syringe 50 Ml IVP PER PROTOCOL PRN Hypoglycemia Protocol Dextrose/Water 50 ml 01/18/24 17:22 Dextrose 50% Syringe 50 Ml IVP PER PROTOCOL PRN Hypoglycemia Protocol Flecainide Acetate 100 mg 01/18/24 21:00 01/19/24 08:32 Flecainide 50 Mg Tab PO 100 mg BID DORITA Administration Folic Acid 1 mg 01/19/24 09:00 01/19/24 08:31 Folic Acid 1 Mg Tab PO 1 mg DAILY DORITA Administration Furosemide 20 mg 01/19/24 09:00 01/19/24 08:31 Furosemide 20 Mg Tab PO 20 mg DAILY DORITA Administration Gabapentin 200 mg 01/18/24 21:00 01/18/24 20:59 Gabapentin 100 Mg Cap PO 200 mg HS DORITA Administration Sodium Chloride 1,000 mls @ 20 mls/hr 01/18/24 11:45 01/19/24 08:37 Saline 0.9% IV Not Given .Q24H DORITA Insulin Aspart 0 unit 01/18/24 12:30 01/19/24 11:55 Insulin Aspart (Novolog) 100 Unit/Ml Vial SQ Not Given AC-TID [facility] Protocol Insulin Detemir 10 unit 01/19/24 21:00 Insulin Detemir (Levemir) 100 Unit/Ml Syr SQ HS DORITA Latanoprost 1 drops 01/18/24 21:00 01/18/24 21:00 Latanoprost 0.005% Ophth Drops 2.5 Ml Btl BOTH EYES 1 drops HS DORITA Administration Losartan Potassium 50 mg 01/19/24 09:00 01/19/24 08:31 Losartan 50 Mg Tab PO 50 mg DAILY DORITA Administration Melatonin 10 mg 01/18/24 21:00 01/18/24 20:59 Melatonin 5 Mg Tablet PO 10 mg HS DORITA Administration Metoprolol Succinate 100 mg 01/18/24 21:00 01/19/24 08:33 Metoprolol Succinate (Er) 100 Mg Tab.Er.24h PO 100 mg BID DORITA Administration Naloxone HCl 0.2 mg 01/18/24 11:32 Naloxone 0.4 Mg/Ml 1 Ml Vial IV Q2M PRN Opioid Reversal Nitroglycerin 0.4 mg 01/18/24 17:52 Nitroglycerin Sl Tabs 0.4 Mg Tab SUBLINGUAL Q5M PRN Chest Pain Pantoprazole Sodium 40 mg 01/19/24 09:00 01/19/24 08:32 Pantoprazole 40 Mg/10 Ml Vial IVP 40 mg DAILY DORITA Administration Sertraline HCl 100 mg 01/19/24 09:00 01/19/24 08:31 Sertraline 100 Mg Tab PO 100 mg DAILY DORITA Administration Objective - Vital Signs Vital signs: Vital Signs Temp 97.8 F 01/19/24 07:07 Pulse 96 01/19/24 07:07 Resp 18 01/19/24 10:05 BP 124/80 01/19/24 07:07 Pulse Ox 99 01/19/24 07:07 FiO2 Intake & Output 01/18/24 01/19/24 01/19/24 18:59 06:59 18:59 Intake Total 200 Output Total 500 400 Balance -300 -400 Weight 90.265 kg Intake: Oral 200 Output: Urine 500 400 Other: Voiding Method Indwelling Catheter Indwelling Catheter # Bowel Movements 1 1 3 - Exam GENERAL: The patient is alert and oriented x3, not in any acute distress. Well developed, well nourished. HEENT: Pupils are round and equally reacting to light. EOMI. No scleral icterus. No conjunctival pallor. Normocephalic, atraumatic. No pharyngeal erythema. No thyromegaly. CARDIOVASCULAR: S1 and S2 present. No murmurs, rubs, or gallops. PULMONARY: Chest is clear to auscultation, no wheezing , no crackles. ABDOMEN: Soft, nontender, nondistended, normoactive bowel sounds. No palpable organomegaly. MUSCULOSKELETAL: No joint swelling or deformity. EXTREMITIES: No cyanosis, clubbing, or pedal edema. NEUROLOGICAL: Gross neurological examination did not reveal any focal deficits. SKIN: No rashes. no petechiae. - Labs CBC & Chem 7: 01/19/24 06:06 01/19/24 06:06 Labs: Abnormal Lab Results - Last 24 Hours (Table) 01/18/24 01/18/24 01/18/24 Range/Units 13:35 16:39 20:49 Hgb (12.0-15.0) g/dL MCH (27.0-32.0) pg MCHC (32.0-37.0) g/dL RDW (11.5-14.5) % Monocytes # (0.20-1.00) X 10*3/uL BUN (9.0-27.0) mg/dL BUN/Creatinine Ratio (12.00-20.00) Ratio POC Glucose (mg/dL) 137 H 235 H 191 H (70-110) mg/dL Hemoglobin A1c (<=6.0) % 01/19/24 01/19/24 01/19/24 Range/Units 05:26 05:46 06:01 Hgb (12.0-15.0) g/dL MCH (27.0-32.0) pg MCHC (32.0-37.0) g/dL RDW (11.5-14.5) % Monocytes # (0.20-1.00) X 10*3/uL BUN (9.0-27.0) mg/dL BUN/Creatinine Ratio (12.00-20.00) Ratio POC Glucose (mg/dL) 67 L 68 L 68 L (70-110) mg/dL Hemoglobin A1c (<=6.0) % 01/19/24 01/19/24 01/19/24 Range/Units 06:06 06:06 06:06 Hgb 11.1 L (12.0-15.0) g/dL MCH 24.8 L (27.0-32.0) pg MCHC 29.7 L (32.0-37.0) g/dL RDW 19.7 H (11.5-14.5) % Monocytes # 1.10 H (0.20-1.00) X 10*3/uL BUN 33.9 H (9.0-27.0) mg/dL BUN/Creatinine Ratio 33.90 H (12.00-20.00) Ratio POC Glucose (mg/dL) (70-110) mg/dL Hemoglobin A1c 8.7 H (<=6.0) % 01/19/24 Range/Units 11:52 Hgb (12.0-15.0) g/dL MCH (27.0-32.0) pg MCHC (32.0-37.0) g/dL RDW (11.5-14.5) % Monocytes # (0.20-1.00) X 10*3/uL BUN (9.0-27.0) mg/dL BUN/Creatinine Ratio (12.00-20.00) Ratio POC Glucose (mg/dL) 52 L (70-110) mg/dL Hemoglobin A1c (<=6.0) % Assessment and Plan Assessment: Diabetes mellitus with hypoglycemia, present on admission, improvement but no resolution Metabolic/toxic encephalopathy secondary to above improved Po most likely asymptomatic bacteriuria rather than acute urinary tract infection Chronic A-fib on Eliquis at home, currently rate controlled Hyperlipidemia Hypertension Coronary artery disease Plan: Continue with aspirin and Plavix Continue with Eliquis Lower the dose of long-acting insulin 40 units down to 10 units, continue with insulin sliding scale Follow-up with endocrinology as an outpatient Continue with D10 W discontinued Resume diet Follow-up urine culture, follow-up blood culture, we will keep monitoring while off antibiotic Zuniga catheter, keep checking bladder scan Labs and medication were reviewed.. Continue same treatment. Continue with symptomatic treatment. Resume home medication. Monitor labs and vitals. DVT and GI prophylaxis. Further recommendations as per clinical course of the patient DVT prophylaxis: Eliquis GI Prophylaxis: Ppi PT/OT: Recommend subacute rehab, consulted social insurance administrator Prognosis is guarded
[2024-01-19 16:43] LABS: Glucose,Whole Blood 210 mg/dL (70-110)
[2024-01-19 20:24] LABS: Glucose,Whole Blood 227 mg/dL (70-110)
[2024-01-19] MEDS: INSULIN DETEMIR (LEVEMIR) 100 UNIT/ML SYR SQ SCH (21:44)
[2024-01-20 02:18] LABS: Glucose,Whole Blood 150 mg/dL (70-110)
[2024-01-20 05:37] LABS: Glucose,Whole Blood 97 mg/dL (70-110)
[2024-01-20 11:48] LABS: Glucose,Whole Blood 116 mg/dL (70-110)
--- NOTE | 2024-01-20 15:09 | P.PN ---
Subjective Progress Note Date: 01/20/24 73 years old female with past medical history of diabetes mellitus, hypertension, atrial fibrillation on blood thinner at home Information obtained by the help of at bedside. Patient took her 40 un its of long-acting insulin last night. This morning her found her unresponsive, he tried to wake her up with no help. He checked her sugar and it was low at 46, he called EMS who checked her sugar it was also low at 53. Patient was resuscitated. And she started waking up at home. Currently patient awake alert and oriented and relaxed and smiling. She denies specific complaint for me. No chest pain or dyspnea. No change in urine or bowel habits. No dysuria or change in frequency but patient has Zuniga catheter Patient also complaining from some diarrhea but no abdominal pain or tenderness and her abdomen looks soft She denies smoking alcohol or illicit drugs She is not on oxygen at home Patient had low-grade temperature in the emergency room and because of that she had a Zuniga catheter placed as per staff. I talked to the patient to discontinue Zuniga catheter but she wants to wait for now She had low-grade temperature but now improved Labs reviewed showing unremarkable CBC, BMP LFT, INR and troponin WBC slightly low at 3.1 Urine analysis is suspicious for infection Urine culture is pending Chest x-ray showing cardiomegaly with possible pulmonary vascular congestion but hypoventilated lung CT of the brain is negative for acute process EKG showing A-fib with a rate of [address]-T changes and QTc 483 Patient's wants to DNR as she states Objective - Vital Signs Vital signs: Vital Signs Temp 97.6 F 01/20/24 07:46 Pulse 89 01/20/24 09:15 Resp 18 01/20/24 09:15 BP 122/75 01/20/24 07:46 Pulse Ox 97 01/20/24 07:46 FiO2 Intake & Output 01/19/24 01/20/24 01/20/24 18:59 06:59 18:59 Intake Total 800 Output Total 700 425 Balance 100 -425 Intake: Oral 800 Output: Urine 700 425 Other: Voiding Method Indwelling Catheter Indwelling Catheter Indwelling Catheter # Voids 500 # Bowel Movements 8 - Exam GENERAL: The patient is alert and oriented x3, not in any acute distress. Well developed, well nourished. HEENT: Pupils are round and equally reacting to light. EOMI. No scleral icterus. No conjunctival pallor. Normocephalic, atraumatic. No pharyngeal erythema. No thyromegaly. CARDIOVASCULAR: S1 and S2 present. No murmurs, rubs, or gallops. PULMONARY: Chest is clear to auscultation, no wheezing , no crackles. ABDOMEN: Soft, nontender, nondistended, normoactive bowel sounds. No palpable organomegaly. MUSCULOSKELETAL: No joint swelling or deformity. EXTREMITIES: No cyanosis, clubbing, or pedal edema. NEUROLOGICAL: Gross neurological examination did not reveal any focal deficits. SKIN: No rashes. no petechiae. - Labs CBC & Chem 7: 01/19/24 06:06 01/19/24 06:06 Labs: Abnormal Lab Results - Last 24 Hours (Table) 01/19/24 01/19/24 01/19/24 Range/Units 11:52 16:41 20:20 POC Glucose (mg/dL) 52 L 210 H 227 H (70-110) mg/dL 01/20/24 Range/Units 02:16 POC Glucose (mg/dL) 150 H (70-110) mg/dL Microbiology - Last 24 Hours (Table) 01/18/24 08:35 Urine Culture - Preliminary Urine,Catheterized 01/18/24 08:35 Blood Culture - Preliminary Blood Assessment and Plan Assessment: Diabetes mellitus with hypoglycemia, present on admission, improvement but no resolution Metabolic/toxic encephalopathy secondary to above improved Po most likely asymptomatic bacteriuria rather than acute urinary tract infection Chronic A-fib on Eliquis at home, currently rate controlled Hyperlipidemia Hypertension Coronary artery disease Plan: Continue with aspirin and Plavix Continue with Eliquis Lower the dose of long-acting insulin 40 units down to 10 units, continue with insulin sliding scale Follow-up with endocrinology as an outpatient Continue with D10 W discontinued Resume diet Follow-up urine culture, follow-up blood culture, we will keep monitoring while off antibiotic Zuniga catheter, keep checking bladder scan Labs and medication were reviewed.. Continue same treatment. Continue with symptomatic treatment. Resume home medication. Monitor labs and vitals. DVT and GI prophylaxis. Further recommendations as per clinical course of the patient DVT prophylaxis: Eliquis GI Prophylaxis: Ppi PT/OT: Recommend subacute rehab, consulted nephrology social worker Prognosis is guarded
[2024-01-20 16:51] LABS: Glucose,Whole Blood 282 mg/dL (70-110)
[2024-01-20 21:11] LABS: Glucose,Whole Blood 233 mg/dL (70-110)
[2024-01-21 02:24] LABS: Glucose,Whole Blood 171 mg/dL (70-110)
[2024-01-21 06:04] LABS: Glucose,Whole Blood 137 mg/dL (70-110)
[2024-01-21 09:40] LABS: Basophils # (A) 0.04 X 10*3/uL (0.00-0.10); Basophils % (A) 0.8 %; Eosinophils # (A) 0.19 X 10*3/uL (0.04-0.35); Eosinophils % (A) 3.6 %; HGB 11.3 g/dL (12.0-15.0); Lymphocytes # (A) 1.05 X 10*3/uL (0.90-5.00); Lymphocytes % (A) 19.9 %; MCH 25.3 pg (27.0-32.0); MCHC 29.7 g/dL (32.0-37.0); MCV 85.2 FL (80.0-97.0); Mean Platelet Volume 10.3 FL (9.5-12.2); Monocytes # (A) 0.99 X 10*3/uL (0.20-1.00); Monocytes % (A) 18.8 %; NRBC Per 100 WBC 0 X 10*3/uL (0.00-0.01); Neutrophils % (A) 56.7 %; Platelet Count 188 X 10*3/uL (140-440); RBC 4.46 X 10*6/uL (4.10-5.20); RDW 19.2 % (11.5-14.5); WBC 5.28 X 10*3/uL (4.50-10.00)
[2024-01-21 10:38] LABS: BUN/Creat Ratio 27.78 Ratio (12.00-20.00); Calcium 8.8 mg/dL (8.7-10.3); Carbon Dioxide 26.3 mmol/L (21.6-31.8); Chloride 107 mmol/L (96-109); Glucose 152 mg/dL (70-110); Potassium 4.4 mmol/L (3.5-5.5); Sodium 143 mmol/L (135-145)
[2024-01-21 11:32] LABS: Glucose,Whole Blood 195 mg/dL (70-110)
--- NOTE | 2024-01-21 13:25 | P.PN ---
Subjective Progress Note Date: 01/21/24 73 years old female with past medical history of diabetes mellitus, hypertension, atrial fibrillation on blood thinner at home Information obtained by the help of at bedside. Patient took her 40 un its of long-acting insulin last night. This morning her found her unresponsive, he tried to wake her up with no help. He checked her sugar and it was low at 46, he called EMS who checked her sugar it was also low at 53. Patient was resuscitated. And she started waking up at home. Currently patient awake alert and oriented and relaxed and smiling. She denies specific complaint for me. No chest pain or dyspnea. No change in urine or bowel habits. No dysuria or change in frequency but patient has Zuniga catheter Patient also complaining from some diarrhea but no abdominal pain or tenderness and her abdomen looks soft She denies smoking alcohol or illicit drugs She is not on oxygen at home Patient had low-grade temperature in the emergency room and because of that she had a Zuniga catheter placed as per staff. I talked to the patient to discontinue Zuniga catheter but she wants to wait for now She had low-grade temperature but now improved Labs reviewed showing unremarkable CBC, BMP LFT, INR and troponin WBC slightly low at 3.1 Urine analysis is suspicious for infection Urine culture is pending Chest x-ray showing cardiomegaly with possible pulmonary vascular congestion but hypoventilated lung CT of the brain is negative for acute process EKG showing A-fib with a rate of [address]-T changes and QTc 483 Patient's wants to DNR as she states 01/21/2024 Patient is seen and evaluated with family at bedside; reports feeling much better Vital signs are reviewed stable with temperature of 97.7, pulse pulse 95, respiration 22 and blood pressure 144/89 Lab review shows WBC of 5.8, hemoglobin 11.3 and platelet count of 188, sodium 143, potassium 4.4, BUNs/creatinine of 25/0.9, blood glucose ranging in 137-1 95; urine culture is negative to date --Patient has been placed on only 10 units of Levemir; takes high-dose insulin at home; reports fair compliance with the diet -- We will continue with current management with plans for possible discharge in next 24 to 48 hours Objective - Vital Signs Vital signs: Vital Signs Temp 97.7 F 01/21/24 07:05 Pulse 95 01/21/24 07:05 Resp 22 01/21/24 07:05 BP 144/89 01/21/24 07:05 Pulse Ox 99 01/21/24 07:05 FiO2 Intake & Output 01/20/24 01/21/24 01/21/24 18:59 06:59 18:59 Output Total 250 1200 Balance -250 -1200 Output: Urine 250 1200 Other: Voiding Method Indwelling Catheter Indwelling Catheter # Voids 1 - Exam GENERAL: The patient is alert and oriented x3, not in any acute distress. Well developed, well nourished. HEENT: Pupils are round and equally reacting to light. EOMI. No scleral icterus. No conjunctival pallor. Normocephalic, atraumatic. No pharyngeal erythema. No thyromegaly. CARDIOVASCULAR: S1 and S2 present. No murmurs, rubs, or gallops. PULMONARY: Chest is clear to auscultation, no wheezing , no crackles. ABDOMEN: Soft, nontender, nondistended, normoactive bowel sounds. No palpable organomegaly. MUSCULOSKELETAL: No joint swelling or deformity. EXTREMITIES: No cyanosis, clubbing, or pedal edema. NEUROLOGICAL: Gross neurological examination did not reveal any focal deficits. SKIN: No rashes. no petechiae. - Labs CBC & Chem 7: 01/21/24 05:54 01/21/24 05:54 Labs: Abnormal Lab Results - Last 24 Hours (Table) 01/20/24 01/20/24 01/20/24 Range/Units 11:47 16:49 21:09 Hgb (12.0-15.0) g/dL MCH (27.0-32.0) pg MCHC (32.0-37.0) g/dL RDW (11.5-14.5) % POC Glucose (mg/dL) 116 H 282 H 233 H (70-110) mg/dL 01/21/24 01/21/24 01/21/24 Range/Units 02:22 05:54 06:03 Hgb 11.3 L (12.0-15.0) g/dL MCH 25.3 L (27.0-32.0) pg MCHC 29.7 L (32.0-37.0) g/dL RDW 19.2 H (11.5-14.5) % POC Glucose (mg/dL) 171 H 137 H (70-110) mg/dL Microbiology - Last 24 Hours (Table) 01/18/24 08:35 Blood Culture - Preliminary Blood Assessment and Plan Assessment: Diabetes mellitus with hypoglycemia, present on admission, improvement but no resolution Metabolic/toxic encephalopathy secondary to above improved Po most likely asymptomatic bacteriuria rather than acute urinary tract infecti on Chronic A-fib on Eliquis at home, currently rate controlled Hyperlipidemia Hypertension Coronary artery disease Plan: Continue with aspirin and Plavix Continue with Eliquis Lower the dose of long-acting insulin 40 units down to 10 units, continue with insulin sliding scale Follow-up with endocrinology as an outpatient Continue with D10 W discontinued Resume diet Follow-up urine culture, follow-up blood culture, we will keep monitoring while off antibiotic Zuniga catheter, keep checking bladder scan Labs and medication were reviewed.. Continue same treatment. Continue with symptomatic treatment. Resume home medication. Monitor labs and vitals. DVT and GI prophylaxis. Further recommendations as per clinical course of the patient DVT prophylaxis: Eliquis GI Prophylaxis: Ppi PT/OT: Recommend subacute rehab, consulted social services coordinator Prognosis is guarded
[2024-01-21 17:09] LABS: Glucose,Whole Blood 349 mg/dL (70-110)
[2024-01-21] MEDS: oxyCODONE-APAP 5-325MG 1 EACH TAB PO SCH (20:24)
[2024-01-21 20:38] LABS: Glucose,Whole Blood 205 mg/dL (70-110)
[2024-01-21] MEDS: FUROSEMIDE 10 MG/ML 2 ML VIAL IV ONE (22:17)
[2024-01-22 03:20] LABS: Glucose,Whole Blood 140 mg/dL (70-110)
[2024-01-22 05:42] LABS: Glucose,Whole Blood 111 mg/dL (70-110)
[2024-01-22] MEDS ORDERED: oxyCODONE-APAP 5-325MG 1 EACH TAB PO SCH (09:00)
[2024-01-22 09:22] LABS: African American GFR (CKD) >90 (>60 ml/min/1.73 sqM); Anion Gap 4 mmol/L; Blood Urea Nitrogen 23 mg/dL (7-17); Calcium 9.1 mg/dL (8.4-10.2); Carbon Dioxide 34 mmol/L (22-30); Chloride 104 mmol/L (98-107); Glucose 112 mg/dL (74-99); Non-African American GFR(CKD) 88 (>60 ml/min/1.73 sqM); Sodium 142 mmol/L (137-145)
[2024-01-22 12:26] LABS: Glucose,Whole Blood 218 mg/dL (70-110)
--- NOTE | 2024-01-22 14:41 | P.PN ---
Subjective Progress Note Date: 01/22/24 73 years old female with past medical history of diabetes mellitus, hypertension, atrial fibrillation on blood thinner at home Information obtained by the help of at bedside. Patient took her 40 un its of long-acting insulin last night. This morning her found her unresponsive, he tried to wake her up with no help. He checked her sugar and it was low at 46, he called EMS who checked her sugar it was also low at 53. Patient was resuscitated. And she started waking up at home. Currently patient awake alert and oriented and relaxed and smiling. She denies specific complaint for me. No chest pain or dyspnea. No change in urine or bowel habits. No dysuria or change in frequency but patient has Zuniga catheter Patient also complaining from some diarrhea but no abdominal pain or tenderness and her abdomen looks soft She denies smoking alcohol or illicit drugs She is not on oxygen at home Patient had low-grade temperature in the emergency room and because of that she had a Zuniga catheter placed as per staff. I talked to the patient to discontinue Zuniga catheter but she wants to wait for now She had low-grade temperature but now improved Labs reviewed showing unremarkable CBC, BMP LFT, INR and troponin WBC slightly low at 3.1 Urine analysis is suspicious for infection Urine culture is pending Chest x-ray showing cardiomegaly with possible pulmonary vascular congestion but hypoventilated lung CT of the brain is negative for acute process EKG showing A-fib with a rate of [address]-T changes and QTc 483 Patient's wants to DNR as she states 01/21/2024 Patient is seen and evaluated with family at bedside; reports feeling much better Vital signs are reviewed stable with temperature of 97.7, pulse pulse 95, respiration 22 and blood pressure 144/89 Lab review shows WBC of 5.8, hemoglobin 11.3 and platelet count of 188, sodium 143, potassium 4.4, BUNs/creatinine of 25/0.9, blood glucose ranging in 137-1 95; urine culture is negative to date --Patient has been placed on only 10 units of Levemir; takes high-dose insulin at home; reports fair compliance with the diet -- We will continue with current management with plans for possible discharge in next 24 to 48 hours 01/22/2024 Patient seen and evaluated resting comfortably in bed; blood glucose readings reviewed and remained stable; currently on Levemir 10 units SQ nightly Signs are reviewed and stable Patient initially admitted for episode of hypoglycemia; initially treated with dextrose containing IV fluids; continues to have fair oral intake -Patient is planned to be discharged home; spoke with patient's daughter who is a nurse in our ICU' reports concerns about patient's marked debility and unable to care for herself at home; patient lives at home with an elderly and they both try to help each other; according to daughter patient has marked difficulty getting out of bed and caring for herself -Will hold discharge; reconsult PT/OT for possible placement to skilled rehab Objective - Vital Signs Vital signs: Vital Signs Temp 98.4 F 01/22/24 13:16 Pulse 85 01/22/24 13:16 Resp 18 01/22/24 13:16 BP 132/82 01/22/24 13:16 Pulse Ox 99 01/22/24 13:16 FiO2 Intake & Output 01/21/24 01/22/24 01/22/24 18:59 06:59 18:59 Intake Total 700 Output Total 400 Balance 700 -400 Intake: Oral 700 Output: Urine 400 Other: Voiding Method Indwelling Catheter Toilet Toilet # Voids 3 2 # Bowel Movements 2 - Exam GENERAL: The patient is alert and oriented x3, not in any acute distress. Well developed, well nourished. HEENT: Pupils are round and equally reacting to light. EOMI. No scleral icterus. No conjunctival pallor. Normocephalic, atraumatic. No pharyngeal erythema. No thyromegaly. CARDIOVASCULAR: S1 and S2 present. No murmurs, rubs, or gallops. PULMONARY: Chest is clear to auscultation, no wheezing , no crackles. ABDOMEN: Soft, nontender, nondistended, normoactive bowel sounds. No palpable organomegaly. MUSCULOSKELETAL: No joint swelling or deformity. EXTREMITIES: No cyanosis, clubbing, or pedal edema. NEUROLOGICAL: Gross neurological examination did not reveal any focal deficits. SKIN: No rashes. no petechiae. - Labs CBC & Chem 7: 01/21/24 05:54 01/22/24 08:11 Labs: Abnormal Lab Results - Last 24 Hours (Table) 01/21/24 01/21/24 01/22/24 Range/Units 17:08 20:36 03:16 Carbon Dioxide (22-30) mmol/L BUN (7-17) mg/dL Glucose (74-99) mg/dL POC Glucose (mg/dL) 349 H 205 H 140 H (70-110) mg/dL 01/22/24 01/22/24 01/22/24 Range/Units 05:41 08:11 12:24 Carbon Dioxide 34 H (22-30) mmol/L BUN 23 H (7-17) mg/dL Glucose 112 H (74-99) mg/dL POC Glucose (mg/dL) 111 H 218 H (70-110) mg/dL Microbiology - Last 24 Hours (Table) 01/18/24 08:35 Blood Culture - Preliminary Blood Assessment and Plan Assessment: Diabetes mellitus with hypoglycemia, present on admission, improvement but no resolution Metabolic/toxic encephalopathy secondary to above improved Po most likely asymptomatic bacteriuria rather than acute urinary tract infection Chronic A-fib on Eliquis at home, currently rate controlled Hyperlipidemia Hypertension Coronary artery disease Plan: Continue with aspirin and Plavix Continue with Eliquis Lower the dose of long-acting insulin 40 units down to 10 units, continue with insulin sliding scale Follow-up with endocrinology as an outpatient Continue with D10 W discontinued Resume diet Follow-up urine culture, follow-up blood culture, we will keep monitoring while off antibiotic Zuniga catheter, keep checking bladder scan Labs and medication were reviewed.. Continue same treatment. Continue with symptomatic treatment. Resume home medication. Monitor labs and vitals. DVT and GI prophylaxis. Further recommendations as per clinical course of the patient DVT prophylaxis: Eliquis GI Prophylaxis: Ppi PT/OT: Recommend subacute rehab, consulted manager social media Prognosis is guarded
[2024-01-22 16:41] LABS: Glucose,Whole Blood 142 mg/dL (70-110)
[2024-01-22 20:26] LABS: Glucose,Whole Blood 171 mg/dL (70-110)
[2024-01-23 02:04] LABS: Glucose,Whole Blood 191 mg/dL (70-110)
[2024-01-23 05:35] LABS: Glucose,Whole Blood 138 mg/dL (70-110)
[2024-01-23 11:32] LABS: Glucose,Whole Blood 180 mg/dL (70-110)
--- NOTE | 2024-01-23 12:34 | XR ---
EXAMINATION TYPE: XR chest 1V portable DATE OF EXAM: 01/23/2024 12:21 PM CLINICAL INDICATION: Female, 73 years old with history of chf; [facility] COMPARISON: Chest radiographs from 01/18/2024 TECHNIQUE: XR chest 1V portable Frontal view of the chest. FINDINGS: Lungs/Pleura: No evidence of focal consolidation or pneumothorax. Blunting of the costophrenic angles is present. Pulmonary vascularity: Pulmonary vascular congestion. Heart/mediastinum: Cardiomediastinal silhouette is enlarged. Musculoskeletal: No acute osseous pathology. IMPRESSION: Cardiomegaly, pulmonary vascular congestion and bilateral pleural effusions. Correlate with BNP for c ongestive heart failure. [facility], , 01/23/2024 12:31 PM
[2024-01-23] MEDS: FUROSEMIDE 10 MG/ML 4 ML VIAL IV SCH (15:15)
[2024-01-23] MEDS: POTASSIUM CHLORIDE ER 10 MEQ TAB.ER.PRT PO SCH (15:15)
[2024-01-23 16:47] LABS: Glucose,Whole Blood 161 mg/dL (70-110)
[2024-01-23 19:30] LABS: Appearance,Urine Cloudy (Clear); Bacteria,Urine Rare /hpf; Bilirubin,Urine Negative (Negative); Blood,Urine Trace (Negative); Color,Urine Colorless; Glucose,Urine (UA) 1+ (Negative); Ketones,Urine Negative (Negative); Leukocyte Esterase,Urine Large (Negative); Mucus,Urine Rare /hpf; Nitrite,Urine Negative (Negative); Protein,Urine Negative (Negative); RBC,Urine 6 /hpf (0-5); Specific Gravity,Urine 1.008 (1.001-1.035); Squamous Epithelial Cell,Urine 1 /hpf (0-4); Urobilinogen,Urine <2.0 mg/dL (<2.0); WBC,Urine >182 /hpf (0-5)
[2024-01-23] MEDS: ATORVASTATIN 10 MG TAB PO SCH (20:15)
[2024-01-23 20:36] LABS: Glucose,Whole Blood 195 mg/dL (70-110)
[2024-01-24 02:45] LABS: Glucose,Whole Blood 115 mg/dL (70-110)
--- NOTE | 2024-01-24 03:34 | PN ---
PROGRESS NOTE DATE OF SERVICE: 01/23/2024 SUBJECTIVE: This is a 73-year-old woman, who was admitted with hypoglycemia and also possibly toxic encephalopathy, also had chronic atrial fibrillation also. No chest pain. No palpitations. The patient is found to be hypoxic also. The chest x-ray which I did today shows some evidence of pulmonary vascular congestion, and CHF also. The patient does not have a BNP. The patient had possible UTI with known Tonie species also. No chest pain. No palpitation. PAST MEDICAL HISTORY: Reviewed. REVIEW OF SYSTEMS: A 14-point review of systems is negative except as mentioned earlier. CURRENT MEDICATIONS: Reviewed include Tambocor. PHYSICAL EXAMINATION: VITAL SIGNS: Pulse is 75, blood pressure 120/92, respirations 16. CHEST: A few scattered rhonchi and crackles. ABDOMEN: Soft, obese. LEGS: Minimal edema. NERVOUS SYSTEM: Nonfocal. LABORATORY DATA: Reviewed. ASSESSMENT: 1. Diabetes mellitus type 2 with hypoglycemia. 2. Possible fungal urinary tract infection with Tonie non-albicans. 3. Rule out congestive heart failure. 4. Chronic atrial fibrillation. 5. Hypertension. 6. Hyperlipidemia. RECOMMENDATIONS AND DISCUSSION: Recommend to continue current management and continue symptomatic treatment. I recommend BNP, 2D echo with Doppler. Infectious Disease evaluation. Cardiology consultation. Empiric Lasix. Guarded prognosis because of multiple complex medical issues. Further recommendations to follow. See orders for further details. MMODL / IJN: [id number] /
[2024-01-24 06:02] LABS: Glucose,Whole Blood 118 mg/dL (70-110)
[2024-01-24] MEDS ORDERED: NON FORMULARY DRUG (Omeprazole 20 MG Capsule.Dr) PO SCH (07:30)
--- NOTE | 2024-01-24 08:15 | P.CONS ---
History of Present Illness - Reason for Consult Consult date: 01/23/24 Fungal UTI Requesting physician: Navneet Bryson - Chief Complaint Unresponsive low blood sugar on admission - History of Present Illness Patient is a 73-year-old female with a past medical history significant for diabetes mellitus hypertension atrial fibrillation, presenting to the hospital 5 days ago after apparently the patient was found to be unresponsive at home EMS was called and the patient was noticed to have a low blood sugar of 30 patient was resuscitated and subsequently brought into the hospital and is being managed by admitting team on presentation to the hospital patient was hypothermic subsequently had normalization of her temperature mildly tachycardic but not hypotensive patient did have a white count of 3.2 admission subsequently 5.28 creatinine was normal liver isms are normal patient did have a UA on admission which did shows cloudy large leukocyte Estrace many budding yeast culture has been finalized with Tonie this patient but not at the because blood culture has been negative infectious disease was consulted today regarding possible fungal UTI patient not very clear however mention she may have Zuniga catheter initially part of admission that had been subsequently discontinued patient currently denies having any burning or frequency of urine patient denies having any suprapubic or flank pain no nausea no vomiting or diar murali mention feeling better wants to go home Review of Systems Positive point and negatives has been mentioned in the HPI, complete review of systems was performed and all other systems are negative Past Medical History Past Medical History: Atrial Fibrillation, Diabetes Mellitus, Hypertension Additional Past Medical History / Comment(s): extensive cardiac history per EMS History of Any Multi-Drug Resistant Organisms: None Reported Past Surgical History: No Surgical Hx Reported Past Psychological History: No Psychological Hx Reported Smoking Status: Former smoker Past Alcohol Use History: None Reported Past Drug Use History: None Reported Medications and Allergies Home Medications Medication Instructions Recorded Confirmed Type Acetaminophen Tab [Tylenol] 500 mg PO Q6HR PRN 01/18/24 01/18/24 History Apixaban [Eliquis] 5 mg PO BID 01/18/24 01/18/24 History Aspirin 81 mg PO DIRECTED 01/18/24 01/18/24 History Canagliflozin [Invokana] 300 mg PO DAILY 01/18/24 01/18/24 History Cholecalciferol [Vitamin D3 (25 25 mcg PO DAILY 01/18/24 01/18/24 History Mcg = 1000 Iu)] Clopidogrel [Plavix] 75 mg PO DAILY 01/18/24 01/18/24 History Fenofibrate Nanocrystallized 145 mg PO DAILY 01/18/24 01/18/24 History [Fenofibrate] Flecainide Acetate [Tambocor] 100 mg PO BID 01/18/24 01/18/24 History Folic Acid 1 mg PO DAILY 01/18/24 01/18/24 History Furosemide [Lasix] 20 mg PO DAILY 01/18/24 01/18/24 History Gabapentin [Neurontin] 200 mg PO HS 01/18/24 01/18/24 History Insulin Lispro [humaLOG Kwikpen] 10 unit SQ AC-TID 01/18/24 01/18/24 History Insulin Lispro [humaLOG Kwikpen] See Protocol SQ AC-TID 01/18/24 01/18/24 History Latanoprost [Latanoprost 0.005%] 1 drop BOTH EYES HS 01/18/24 01/18/24 History Losartan [Cozaar] 50 mg PO DAILY 01/18/24 01/18/24 History Melatonin 10 mg PO HS 01/18/24 01/18/24 History Metoprolol Succinate (ER) [Toprol 100 mg PO BID 01/18/24 01/18/24 History XL] Naloxone HCl [Narcan] 4 mg NASAL ONCE PRN 01/18/24 01/18/24 History Nitroglycerin Sl Tabs [Nitrostat] 0.4 mg SUBLINGUAL Q5M PRN 01/18/24 01/18/24 History Omeprazole [PriLOSEC] 20 mg PO AC-BRKFST 01/18/24 01/18/24 History Potassium Chloride [Klor-Con M10] 10 meq PO DAILY 01/18/24 01/18/24 History Sertraline [Zoloft] 100 mg PO DAILY 01/18/24 01/18/24 History Simvastatin [Zocor] 20 mg PO HS 01/18/24 01/18/24 History oxyCODONE-APAP 5-325MG [Percocet 1 tab PO DAILY 01/18/24 01/18/24 History 5-325 mg] Insulin Glargine,Hum.rec.anlog 15 units SQ HS #0 01/22/24 01/18/24 Rx [Lantus Solostar Pen] Allergies Allergy/AdvReac Type Severity Reaction Status Date / Time codeine Allergy Rash/Hives Verified 01/18/24 10:10 iodine Allergy Rash/Hives Verified 01/18/24 10:10 Physical Exam Vitals: Vital Signs Temp Pulse Resp BP Pulse Ox 01/23/24 07:27 97.7 F 75 16 149/96 91 L 01/23/24 01:39 97.5 F L 97 18 144/88 99 01/22/24 19:10 97.6 F 113 H 20 156/91 98 Intake and Output 01/22/24 01/23/24 01/23/24 22:59 06:59 14:59 Other: # Voids 3 2 # Bowel Movements 1 GENERAL DESCRIPTION: Elderly female lying in bed, no distress. No tachypnea or accessory muscle of respiration use. HEENT: Shows Pallor , no scleral icterus. Oral mucous membrane is dry. No pharyngeal erythema or thrush NECK: Trachea central, no thyromegaly. LUNGS: Unlabored breathing. Clear to auscultation anteriorly. No wheeze or crackle. HEART: S1, S2, regular rate and rhythm. No loud murmur ABDOMEN: Soft, no tenderness , guarding or rigidity, no organomegaly EXTREMITIES: No edema of feet. SKIN: No rash, no masses palpable. NEUROLOGICAL: The patient is awake, alert, oriented x3, mood and affect normal. Results CBC & Chem 7: 01/21/24 05:54 01/22/24 08:11 Labs: Abnormal Lab Results - Last 24 Hours (Table) 01/22/24 01/22/24 01/23/24 Range/Units 16:40 20:23 02:03 POC Glucose (mg/dL) 142 H 171 H 191 H (70-110) mg/dL 01/23/24 01/23/24 Range/Units 05:32 11:31 POC Glucose (mg/dL) 138 H 180 H (70-110) mg/dL Microbiology - Last 24 Hours (Table) 01/18/24 08:35 Urine Culture - Final Urine,Catheterized Tonie species, not albicans Assessment and Plan (1) UTI (urinary tract infection) Current Visit: Yes Status: Acute Code(s): N39.0 - URINARY TRACT INFECTION, SITE NOT SPECIFIED SNOMED Code(s): 92313847 Plan: 1patient presented to the hospital with episode of unresponsiveness noted to be hypoglycemic patient may have a Zuniga catheter initial part of this admission putting her at risk of UTI with urine culture subsequently finalized with Tonie species not albicans however the patient denies having any burning or frequency of urine no suprapubic or flank pain denies having any vaginal itching or drainage possibly asymptomatic bacteriuria 2-repeat UA culture has been ordered results will be followed 3-would not recommend any antifungal at this point unless the patient becomes symptomatic per [facility] guidelines We will follow on clinical condition and cultures to further adjust medication if needed Thank you for this consultation we will follow the patient along with you Dictation was produced using [employer] dictation software. please excuse any grammatical, word or spelling errors. Time with Patient: Greater than 30
[2024-01-24] MEDS: FENOFIBRATE 160 MG TAB PO SCH (09:38)
[2024-01-24] MEDS: SPIRONOLACTONE 25 MG TAB PO SCH (09:39)
[2024-01-24 11:37] LABS: Glucose,Whole Blood 104 mg/dL (70-110)
[2024-01-24] MEDS: LOSARTAN 50 MG TAB PO SCH (11:50)
--- NOTE | 2024-01-24 12:38 | P.PN ---
"Subjective Progress Note Date: 01/24/24 Principal diagnosis: Reason for follow-up is positive urine culture Patient is a 73-year-old female with a past medical history significant for diabetes mellitus hypertension atrial fibrillation, presenting to the hospital 6 days ago after apparently the patient was found to be unresponsive at home, patient did have a positive urine culture with Tonie species not albicans prompted this consultation. On today's evaluation that is 01/24/2024, Patient is afebrile this morning patient denies having any chest pain shortness of breath or cough, the patient is breathing comfortably on 3 L current oxygen, patient denies any abdominal pain no diarrhea no nausea no vomiting, patient denies any urinary symptoms of burning frequency no suprapubic pain and no vaginal drainage or itching. Repeat UA was also positive Objective - Vital Signs Vital signs: Vital Signs Temp 97.9 F 01/24/24 07:29 Pulse 87 01/24/24 10:45 Resp 16 01/24/24 07:29 BP 148/81 01/24/24 10:45 Pulse Ox 99 01/24/24 07:29 FiO2 Intake & Output 01/23/24 01/24/24 01/24/24 18:59 06:59 18:59 Other: Voiding Method Toilet # Voids 2 3 2 # Bowel Movements 1 - Exam GENERAL DESCRIPTION: An elderly female up in the chair in no distress RESPIRATORY SYSTEM: Unlabored breathing , decreased breath sounds at bases HEART: S1 S2 regular rate and rhythm , ABDOMEN: Soft , no tenderness EXTREMITIES: No edema feet - Labs CBC & Chem 7: 01/21/24 05:54 01/22/24 08:11 Labs: Abnormal Lab Results - Last 24 Hours (Table) 01/23/24 01/23/24 01/23/24 Range/Units 16:45 18:24 20:35 POC Glucose (mg/dL) 161 H 195 H (70-110) mg/dL Urine Appearance Cloudy H (Clear) Urine Glucose (UA) 1+ H (Negative) Urine Blood Trace H (Negative) Ur Leukocyte Esterase Large H (Negative) Urine RBC 6 H (0-5) /hpf Urine WBC >182 H (0-5) /hpf Urine WBC Clumps Occasional H (None) /hpf Urine Bacteria Rare H (None) /hpf Urine Mucus Rare H (None) /hpf 01/24/24 01/24/24 Range/Units 02:43 06:01 POC Glucose (mg/dL) 115 H 118 H (70-110) mg/dL Urine Appearance (Clear) Urine Glucose (UA) (Negative) Urine Blood (Negative) Ur Leukocyte Esterase (Negative) Urine RBC (0-5) /hpf Urine WBC (0-5) /hpf Urine WBC Clumps (None) /hpf Urine Bacteria (None) /hpf Urine Mucus (None) /hpf Microbiology - Last 24 Hours (Table) 01/18/24 08:35 Blood Culture - Final Blood Assessment and Plan (1) UTI (urinary tract infection) Current Visit: Yes Status: Acute Code(s): N39.0 - URINARY TRACT INFECTION, SITE NOT SPECIFIED SNOMED Code(s): 66184378 Plan: 1patient presented to the hospital with episode of unresponsiveness noted to be hypoglycemic patient may have a Zuniga catheter initial part of this admission putting her at risk of UTI with urine culture subsequently finalized with Tonie species not albicans however the patient denies having any burning or frequency of urine no suprapubic or flank pain denies having any vaginal itching or drainage possibly asymptomatic bacteriuria 2-repeat UA still positive however keeping in mind patient have no symptoms we will hold on adding any antifungal or antibiotic at this point Dictation was produced using [employer] dictation software. please excuse any grammatical, word or spelling errors. Time with Patient: Less than 30"
--- NOTE | 2024-01-24 14:34 | CA ---
Transthoracic Echo Report Name: Melita Boles Age: 73 Gender: F : 1950 Exam Date: 01/24/2024 07:32 Exam Location: [facility] Ht (in): 60 Wt (lb): 200 Ordering Physician: Navneet Bryson MD Attending/Referring Phys: [employer] Venice Conroy RDCS Procedure CPT: Indications: chf Cardiac Hx: Technical Quality: Technically difficult study Contrast 1: Definity Total Dose (mL): 2 Contrast 2: Total Dose (mL): MEASUREMENTS (Male / Female) Normal Values 2D ECHO LV Diastolic Diameter PLAX 4.2 cm 4.2 - 5.9 / 3.9 - 5.3 cm LV Systolic Diameter PLAX 3.2 cm IVS Diastolic Thickness 1.1 cm 0.6 - 1.0 / 0.6 - 0.9 cm LVPW Diastolic Thickness 1.1 cm 0.6 - 1.0 / 0.6 - 0.9 cm LV Relative Wall Thickness 0.5 RV Internal Dim ED PLAX 3.8 cm LVOT Diameter 2.5 cm LA Systolic Diameter LX 4.7 cm 3.0 - 4.0 / 2.7 - 3.8 cm LA Volume 77.1 cm??? 18 - 58 / 22 - 52 cm??? LA Volume Index 38.4 cm???/m??? 16 - 28 cm???/m??? M-MODE Aortic Root Diameter MM 3.5 cm AV Cusp Separation MM 2.0 cm DOPPLER AV Peak Velocity 82.5 cm/s AV Peak Gradient 2.7 mmHg MV Area PHT 4.6 cm??? MV Deceleration Time 101.6 ms TR Peak Velocity 323.5 cm/s TR Peak Gradient 41.9 mmHg Right Ventricular Systolic Press 45.9 mmHg FINDINGS Left Ventricle Left ventricular ejection fraction is estimated at 35-40 %. Left ventricular cavity size normal. Mildly increased septal wall thickness. Mildly increased posterior wall thickness. Inferior wall hypokinesis Right Ventricle Moderate right ventricular dilatation. Severe pulmonary hypertension. Right ventricular systolic pressure estimated at 56 mm hg. Right Atrium Right atrium not well visualized. No right atrial thrombus or mass seen. Left Atrium Severely increased left atrial diameter. Moderately increased left atrial volume. Mildly increased left atrial area. Mitral Valve Structurally normal mitral valve. Mitral annular calcification. Moderate mitral regurgitation. No evidence for mitral valve prolapse. No mitral stenosis. Aortic Valve Aortic valve not well visualized. No aortic valve stenosis or regurgitation. Tricuspid Valve Structurally normal tricuspid valve. [id number] tricuspid regurgitation. Pulmonic Valve Pulmonic valve not well visualized. No pulmonic regurgitation. Pericardium No pericardial or pleural effusion. Aorta Normal size aortic root and proximal ascending aorta. CONCLUSIONS Diagnosis: Congestive heart failure Reduced LV systolic function with inferior wall hypokinesis RV enlargement with RVSP in the mid 50s Severe left atrial enlargement Previewed by: Dr. Marc Bermudez MD (Electronically Signed) Final Date: 24 January 2024 14:33
--- NOTE | 2024-01-24 14:37 | PN ---
PROGRESS NOTE DATE OF SERVICE: 01/24/2024 SUBJECTIVE: This is a 73-year-old woman who was admitted with diabetes mellitus type 2 with hyperglycemia, also had possibly CHF with acute exacerbation. The patient is started on IV intravenous Lasix. The BNP was elevated up to 9040. Cardiology has seen the patient and adjusted the medications. PAST MEDICAL HISTORY: Reviewed. REVIEW OF SYSTEMS: A 14-point review is negative except as mentioned earlier. CURRENT MEDICATIONS: Reviewed include IV Lasix, dose and rest of medications reviewed. PHYSICAL EXAMINATION: VITAL SIGNS: Pulse 88, blood pressure 152/80, respiratory rate 16. CHEST: Few scattered rhonchi and crackles. ABDOMEN: Soft. NERVOUS SYSTEM: No focal deficits. LABORATORY DATA: Reviewed. Urine tonie. ASSESSMENT: 1. Diabetes mellitus type 2 with hyperglycemia. 2. Congestive heart failure with acute exacerbation, ejection fraction unknown. 3. Tonie non-albicans and urinary infection, asymptomatic fungal per ID. 4. Chronic atrial fibrillation. 5. Hypertension. 6. Hyperlipidemia. RECOMMENDATIONS: Recommend to continue current management and treatment. Otherwise, continue with Lasix. Recommend 2D echo with Doppler and repeat labs in the morning. Closely follow. Guarded prognosis. Increase ambulation. Further recommendations to follow. Recommend UA also. MMODL / IJN: [id number] /
[2024-01-24 14:48] LABS: Appearance,Urine Cloudy (Clear); Bacteria,Urine Rare /hpf; Bilirubin,Urine Negative (Negative); Blood,Urine Trace (Negative); Budding Yeast,Urine Rare /hpf; Color,Urine Colorless; Glucose,Urine (UA) Negative (Negative); Hyaline Casts,Urine 5 /lpf (0-2); Ketones,Urine Negative (Negative); Leukocyte Esterase,Urine Large (Negative); Mucus,Urine Rare /hpf; Nitrite,Urine Negative (Negative); Protein,Urine Negative (Negative); RBC,Urine 3 /hpf (0-5); Specific Gravity,Urine 1.008 (1.001-1.035); Squamous Epithelial Cell,Urine 3 /hpf (0-4); Urobilinogen,Urine <2.0 mg/dL (<2.0); WBC,Urine >182 /hpf (0-5)
[2024-01-24 16:17] LABS: Glucose,Whole Blood 243 mg/dL (70-110)
[2024-01-24 21:00] LABS: Glucose,Whole Blood 271 mg/dL (70-110)
[2024-01-24] MEDS: ATORVASTATIN 20 MG TAB PO SCH (21:36)
[2024-01-25 01:47] LABS: Glucose,Whole Blood 150 mg/dL (70-110)
[2024-01-25 06:22] LABS: Glucose,Whole Blood 98 mg/dL (70-110)
[2024-01-25 08:51] LABS: Basophils # (A) 0.05 X 10*3/uL (0.00-0.10); Eosinophils # (A) 0.16 X 10*3/uL (0.04-0.35); Eosinophils % (A) 3.3 %; HCT 37.7 % (37.2-46.3); HGB 11.1 g/dL (12.0-15.0); Lymphocytes # (A) 0.88 X 10*3/uL (0.90-5.00); MCH 25.3 pg (27.0-32.0); MCHC 29.4 g/dL (32.0-37.0); MCV 86.1 FL (80.0-97.0); Mean Platelet Volume 10.9 FL (9.5-12.2); Monocytes # (A) 0.84 X 10*3/uL (0.20-1.00); Monocytes % (A) 17.2 %; NRBC Per 100 WBC 0 X 10*3/uL (0.00-0.01); Neutrophils # (A) 2.94 X 10*3/uL (1.80-7.70); Neutrophils % (A) 60.3 %; Platelet Count 181 X 10*3/uL (140-440); RBC 4.38 X 10*6/uL (4.10-5.20); RDW 18.5 % (11.5-14.5); WBC 4.88 X 10*3/uL (4.50-10.00)
[2024-01-25 09:34] LABS: Blood Urea Nitrogen 16.8 mg/dL (9.0-27.0); Calcium 8.8 mg/dL (8.7-10.3); Carbon Dioxide 32.5 mmol/L (21.6-31.8); Chloride 104 mmol/L (96-109); Glucose 116 mg/dL (70-110); Potassium 3.2 mmol/L (3.5-5.5); Sodium 146 mmol/L (135-145)
--- NOTE | 2024-01-25 10:18 | P.CRDCN ---
History of Present Illness History of present illness: This is Dr. Bermudez dictating a consult on this patient The patient was interviewed and examined IMPRESSION / ASSESSMENT: Congestive heart failure with prominent jugular distention Shortness of breath with minimal exertion Hypertension. Blood pressure reading Dyslipidemia persistent atrial fibrillation, failed flecainide Type 2 diabetes, recently admitted with hypoglycemia with blood sugars in the 30s abnormal UA PLAN: IV Lasix every 12 hourly 40 mg Stop oral potassium and add spironolactone 25 mg p.o. daily and consider increasing to 50 mg p.o. daily Watch BMP and magnesium Check TSH will review 2D echo and Doppler study done this morning Losartan to 100 mg at noontime Continue metoprolol 100 mg twice daily stop flecainide HPI Patient was admitted initially for hypoglycemia However she was found to be quite short of breath when she was walking around and also in atrial fibrillation Chest x-ray showed increased vascular congestion which prompted the consultation However the nurse stated that she would get very short of breath walking around in the room On examination she has obvious engorged neck veins She is a poor historian ROS: No fever chills or rigors, no cough, phlegm or expectoration, no nausea, vomiting or diarrhea, no hematuria, dysuria, no musculoskeletal complaints, no strokes or seizures, no skin lesions. EXAMINATION: Elevated blood pressure readings Irregular rhythm rate controlled atrial fibrillation Engorged neck veins/JVD Decreased breath sounds bilaterally Heart sounds are irregular no murmurs Mild bilateral lower extremity edema Soft abdomen REVIEW OF LABS, ECG & MEDICAL DATA Abnormal UA Normal white count of 5.2 Hemoglobin low 11.3 with iron deficiency parameters positive Platelet count 180,000 Sodium 142 potassium 4.0 Creatinine 0.7 NT proBNP was sent yesterday in response to the chest x-ray. Greater than 9000 transfer to Past Medical History Past Medical History: Atrial Fibrillation, Diabetes Mellitus, Hypertension Additional Past Medical History / Comment(s): extensive cardiac history per EMS History of Any Multi-Drug Resistant Organisms: None Reported Past Surgical History: No Surgical Hx Reported Past Psychological History: No Psychological Hx Reported Smoking Status: Former smoker Past Alcohol Use History: None Reported Past Drug Use History: None Reported Medications and Allergies Home Medications Medication Instructions Recorded Confirmed Type RX: Acetaminophen Tab [Tylenol] 500 mg PO Q6HR PRN 01/18/24 01/18/24 History RX: Apixaban [Eliquis] 5 mg PO BID 01/18/24 01/18/24 History RX: Aspirin 81 mg PO DIRECTED 01/18/24 01/18/24 History RX: Canagliflozin [Invokana] 300 mg PO DAILY 01/18/24 01/18/24 History RX: Cholecalciferol [Vitamin D3 25 mcg PO DAILY 01/18/24 01/18/24 History (25 Mcg = 1000 Iu)] RX: Clopidogrel [Plavix] 75 mg PO DAILY 01/18/24 01/18/24 History RX: Fenofibrate Nanocrystallized 145 mg PO DAILY 01/18/24 01/18/24 History [Fenofibrate] RX: Flecainide Acetate [Tambocor] 100 mg PO BID 01/18/24 01/18/24 History RX: Folic Acid 1 mg PO DAILY 01/18/24 01/18/24 History RX: Furosemide [Lasix] 20 mg PO DAILY 01/18/24 01/18/24 History RX: Gabapentin [Neurontin] 200 mg PO HS 01/18/24 01/18/24 History RX: Insulin Lispro [humaLOG 10 unit SQ AC-TID 01/18/24 01/18/24 History Kwikpen] RX: Insulin Lispro [humaLOG See Protocol SQ AC-TID 01/18/24 01/18/24 History Kwikpen] RX: Latanoprost [Latanoprost 1 drop BOTH EYES HS 01/18/24 01/18/24 History 0.005%] RX: Losartan [Cozaar] 50 mg PO DAILY 01/18/24 01/18/24 History RX: Melatonin 10 mg PO HS 01/18/24 01/18/24 History RX: Metoprolol Succinate (ER) 100 mg PO BID 01/18/24 01/18/24 History [Toprol XL] RX: Naloxone HCl [Narcan] 4 mg NASAL ONCE PRN 01/18/24 01/18/24 History RX: Nitroglycerin Sl Tabs 0.4 mg SUBLINGUAL Q5M PRN 01/18/24 01/18/24 History [Nitrostat] RX: Omeprazole [PriLOSEC] 20 mg PO AC-BRKFST 01/18/24 01/18/24 History RX: Potassium Chloride [Klor-Con 10 meq PO DAILY 01/18/24 01/18/24 History M10] RX: Sertraline [Zoloft] 100 mg PO DAILY 01/18/24 01/18/24 History RX: Simvastatin [Zocor] 20 mg PO HS 01/18/24 01/18/24 History RX: oxyCODONE-APAP 5-325MG 1 tab PO DAILY 01/18/24 01/18/24 History [Percocet 5-325 mg] RX: Insulin Glargine,Hum.rec.anlog 15 units SQ HS #0 01/22/24 01/18/24 Rx [Lantus Solostar Pen] Allergies Allergy/AdvReac Type Severity Reaction Status Date / Time codeine Allergy Rash/Hives Verified 01/18/24 10:10 iodine Allergy Rash/Hives Verified 01/18/24 10:10 Physical Exam Vitals: Vital Signs Temp Pulse Resp BP Pulse Ox Pulse Ox Pulse Ox 01/24/24 07:29 97.9 F 88 16 152/88 99 01/24/24 01:49 97.3 F L 84 18 142/82 95 01/23/24 19:27 98.2 F 103 H 17 156/96 98 01/23/24 16:28 99 90 L 01/23/24 13:58 98.1 F 82 16 163/91 99 Pulse Ox 01/24/24 07:29 01/24/24 01:49 01/23/24 19:27 01/23/24 16:28 87 L 01/23/24 13:58 Intake and Output 01/23/24 01/24/24 01/24/24 22:59 06:59 14:59 Other: Voiding Method Toilet # Voids 2 3 Results 01/21/24 05:54 01/22/24 08:11 Current Medications Generic Name Dose Route Start Last Admin Trade Name Freq PRN Reason Stop Dose Admin Acetaminophen 500 mg 01/18/24 17:52 01/23/24 20:16 Acetaminophen Tab 500 Mg Tab PO 500 mg Q6HR PRN Administration Pain Apixaban 5 mg 01/18/24 21:00 01/23/24 20:15 Apixaban 5 Mg Tab PO 5 mg BID [facility] Administration Protocol Atorvastatin Calcium 20 mg 01/24/24 21:00 Atorvastatin 10 Mg Tab PO [facility] Cholecalciferol 25 mcg 01/19/24 09:00 01/23/24 09:42 Cholecalciferol 25 Mcg (1000 Iu) Tablet PO 25 mcg DAILY DORITA Administration Clopidogrel Bisulfate 75 mg 01/19/24 09:00 01/23/24 09:43 Clopidogrel 75 Mg Tab PO 75 mg DAILY DORITA Administration Dextrose/Water 25 ml 01/18/24 17:22 Dextrose 50% Syringe 50 Ml IVP PER PROTOCOL PRN Hypoglycemia Protocol Dextrose/Water 50 ml 01/18/24 17:22 Dextrose 50% Syringe 50 Ml IVP PER PROTOCOL PRN Hypoglycemia Protocol Fenofibrate 160 mg 01/24/24 09:00 Fenofibrate 160 Mg Tab PO DAILY DORITA Folic Acid 1 mg 01/19/24 09:00 01/23/24 09:42 Folic Acid 1 Mg Tab PO 1 mg DAILY DORITA Administration Furosemide 40 mg 01/23/24 14:30 01/23/24 20:15 Furosemide 10 Mg/Ml 4 Ml Vial IV 40 mg Q12HR DORITA Administration Gabapentin 200 mg 01/18/24 21:00 01/23/24 20:15 Gabapentin 100 Mg Cap PO 200 mg HS DORITA Administration Insulin Aspart 0 unit 01/18/24 12:30 01/23/24 21:11 Insulin Aspart (Novolog) 100 Unit/Ml Vial SQ 2 unit AC-TID DORITA Administration Protocol Insulin Detemir 10 unit 01/19/24 21:00 01/23/24 21:12 Insulin Detemir (Levemir) 100 Unit/Ml Syr SQ 10 unit HS DORITA Administration Latanoprost 1 drops 01/18/24 21:00 01/23/24 20:16 Latanoprost 0.005% Ophth Drops 2.5 Ml Btl BOTH EYES 1 drops HS DORITA Administration Losartan Potassium 100 mg 01/24/24 12:00 Losartan 50 Mg Tab PO DAILY DORITA Melatonin 10 mg 01/18/24 21:00 01/23/24 20:15 Melatonin 5 Mg Tablet PO 10 mg HS DORITA Administration Metoprolol Succinate 100 mg 01/18/24 21:00 01/23/24 20:15 Metoprolol Succinate (Er) 100 Mg Tab.Er.24h PO 100 mg BID DORITA Administration Naloxone HCl 0.2 mg 01/18/24 11:32 Naloxone 0.4 Mg/Ml 1 Ml Vial IV Q2M PRN Opioid Reversal Nitroglycerin 0.4 mg 01/18/24 17:52 Nitroglycerin Sl Tabs 0.4 Mg Tab SUBLINGUAL Q5M PRN Chest Pain Oxycodone/Acetaminophen 1 each 01/21/24 20:30 01/23/24 09:41 Oxycodone-Apap 5-325mg 1 Each Tab PO 1 each DAILY DORITA Administration Pantoprazole Sodium 40 mg 01/19/24 09:00 01/23/24 09:41 Pantoprazole 40 Mg/10 Ml Vial IVP 40 mg DAILY DORITA Administration Sertraline HCl 100 mg 01/19/24 09:00 01/23/24 09:42 Sertraline 100 Mg Tab PO 100 mg DAILY DORITA Administration Spironolactone 25 mg 01/24/24 09:00 Spironolactone 25 Mg Tab PO DAILY DORITA Intake and Output 01/23/24 01/24/24 01/24/24 22:59 06:59 14:59 Other: Voiding Method Toilet # Voids 2 3 01/21/24 05:54 01/22/24 08:11
[2024-01-25] MEDS: SACUBITRIL/VALSARTAN 24 MG-26 MG TABLET PO SCH (10:20)
--- NOTE | 2024-01-25 10:21 | P.PN ---
Subjective Patient is doing better. She still has an obvious JVD sitting up But she feels better less short of breath She looks comfortable On examination breath sounds are reduced bilaterally with some scattered crackles at the bases Heart sounds S1-S2 are soft, soft systolic murmur Blood pressure still elevated Labs reviewed. Hemoglobin 11.1 Sodium 146, potassium 3.2 BUN 17 and creatinine 0.8 Impression Acute congestive heart failure with reduced LV systolic function RV dysfunction and RV enlargement Tricuspid regurgitation severe MR moderate Persistent atrial fibrillation rate controlled on Toprol-XL 100 mg twice daily Plan Her blood pressure still elevated. I will stop losartan and start Entresto 24/26 mg p.o. twice daily for heart failure management Potassium is low she is on oral potassium anode spironolactone and I will grad ually maximize spironolactone Continue IV Lasix for now BMP tomorrow Continue metoprolol succinate 100 mg twice daily for rate control of atrial fibrillation management of cardiomyopathy Subsequently I will add [facility] transfer to Objective - Vital Signs Vital signs: Vital Signs Temp 98.2 F 01/25/24 07:47 Pulse 83 01/25/24 07:47 Resp 16 01/25/24 07:47 BP 140/70 01/25/24 09:00 Pulse Ox 100 01/25/24 07:47 FiO2 Intake & Output 01/24/24 01/25/24 01/25/24 18:59 06:59 18:59 Weight 88.3 kg Other: Voiding Method Toilet # Voids 3 2 # Bowel Movements 1 1 - Labs CBC & Chem 7: 01/25/24 05:02 01/25/24 05:02 Labs: Abnormal Lab Results - Last 24 Hours (Table) 01/24/24 01/24/24 01/24/24 Range/Units 14:23 16:16 20:58 Hgb (12.0-15.0) g/dL MCH (27.0-32.0) pg MCHC (32.0-37.0) g/dL RDW (11.5-14.5) % Lymphocytes # (0.90-5.00) X 10*3/uL Sodium (135-145) mmol/L Potassium (3.5-5.5) mmol/L Carbon Dioxide (21.6-31.8) mmol/L BUN/Creatinine Ratio (12.00-20.00) Ratio Glucose (70-110) mg/dL POC Glucose (mg/dL) 243 H 271 H (70-110) mg/dL Urine Appearance Cloudy H (Clear) Urine Blood Trace H (Negative) Ur Leukocyte Esterase Large H (Negative) Urine WBC >182 H (0-5) /hpf Urine Bacteria Rare H (None) /hpf Hyaline Casts 5 H (0-2) /lpf Urine Mucus Rare H (None) /hpf Urine Yeast (Budding) Rare H (None) /hpf 01/25/24 01/25/24 01/25/24 Range/Units 01:45 05:02 05:02 Hgb 11.1 L (12.0-15.0) g/dL MCH 25.3 L (27.0-32.0) pg MCHC 29.4 L (32.0-37.0) g/dL RDW 18.5 H (11.5-14.5) % Lymphocytes # 0.88 L (0.90-5.00) X 10*3/uL Sodium 146 H (135-145) mmol/L Potassium 3.2 L (3.5-5.5) mmol/L Carbon Dioxide 32.5 H (21.6-31.8) mmol/L BUN/Creatinine Ratio 21.00 H (12.00-20.00) Ratio Glucose 116 H (70-110) mg/dL POC Glucose (mg/dL) 150 H (70-110) mg/dL Urine Appearance (Clear) Urine Blood (Negative) Ur Leukocyte Esterase (Negative) Urine WBC (0-5) /hpf Urine Bacteria (None) /hpf Hyaline Casts (0-2) /lpf Urine Mucus (None) /hpf Urine Yeast (Budding) (None) /hpf Microbiology - Last 24 Hours (Table) 01/23/24 18:24 Urine Culture - Preliminary Urine,Voided
[2024-01-25 11:05] LABS: Glucose,Whole Blood 136 mg/dL (70-110)
--- NOTE | 2024-01-25 11:45 | XR ---
EXAMINATION TYPE: XR chest 1V portable DATE OF EXAM: 01/25/2024 11:10 AM CLINICAL INDICATION: Female, 73 years old with history of shortness of breath; COMPARISON: Chest radiographs from 01/23/2024 TECHNIQUE: XR chest 1V portable Frontal view of the chest. FINDINGS: Lungs/Pleura: No evidence of focal consolidation or pneumothorax. Blunting of the costophrenic angles is present. Pulmonary vascularity: Pulmonary vascular congestion. Heart/mediastinum: Cardiomediastinal silhouette is enlarged. Musculoskeletal: No acute osseous pathology. IMPRESSION: Cardiomegaly, pulmonary vascular congestion and bilateral pleural effusions. Correlate with BNP for c ongestive heart failure. [facility], , 01/25/2024 11:43 AM
[2024-01-25] MEDS ORDERED: Potassium Replacement Protocol 1 EACH MISC MISCELLANE PRN (12:15)
[2024-01-25] MEDS ORDERED: Magnesium Replacement Protocol 1 EACH MISC MISCELLANE PRN (12:15)
[2024-01-25] MEDS: POTASSIUM BICARBONATE/CIT AC 20 MEQ TABLET.EFF PO SCH (12:18)
[2024-01-25] MEDS: POTASSIUM CHLORIDE ER 20 MEQ TAB.ER PO SCH (12:56)
--- NOTE | 2024-01-25 14:19 | PN ---
PROGRESS NOTE DATE OF SERVICE: 01/25/2024 SUBJECTIVE: This is a 73-year-old woman, who was admitted with hypoglycemia as well as CHF acute exacerbation and will be closely monitored at this time. The patient is on intravenous Lasix. The most recent chest x-ray showed some congestion and bilateral pleural effusion also. A 2D echo with Doppler showed ejection fraction about 35% to 40% and as well as some hypokinesis with RV enlargement and evidence of pulmonary hypertension also and severe left atrial enlargement as well. Moderate mitral regurgitation was also noted. PAST MEDICAL HISTORY: Reviewed. REVIEW OF SYSTEMS: A 14-point review is negative except as mentioned earlier. CURRENT MEDICATIONS: Reviewed include Plavix. Dose and rest of the medications noted. PHYSICAL EXAMINATION: VITAL SIGNS: Pulse is 83, blood pressure 160/97, respirations 16. HEENT: Conjunctivae normal. NECK: No JVD. CARDIOVASCULAR: S1, S2. RESPIRATIONS: Breath sounds diminished at the bases. A few scattered rhonchi. ABDOMEN: Soft, nontender. LEGS: No edema. NERVOUS SYSTEM: Nonfocal. LABORATORY DATA: Sodium 140, potassium 3.2. ASSESSMENT: 1. Congestive heart failure acute exacerbation with acute on chronic systolic dysfunction, ejection fraction 35% to 40%. 2. Severe pulmonary hypertension and 2D echo. 3. Severe left atrial enlargement with moderate mitral regurgitation. 4. Diabetes mellitus, type 2 with hypoglycemia. 5. Tonie non-albicans and urinary tract infection, asymptomatic fungal infection per ID. 6. Chronic atrial fibrillation. 7. Hypertension. 8. Hyperlipidemia. RECOMMENDATIONS: Recommend to continue current management and continue with Lasix. Supplement potassium. Monitor closely. Closely follow with Cardiology. Increase ambulation. The patient's shortness of breath is improving at this time. Adjust medications. Further recommendations to follow. The patient still has continued pyuria. MMODL / IJN: [id number] /
[2024-01-25 14:35] VITALS: BMI 38.0
--- NOTE | 2024-01-25 14:48 | CT ---
EXAMINATION TYPE: CT abdomen pelvis wo con DATE OF EXAM: 01/25/2024 COMPARISON: None HISTORY: 73-year-old female PY[place] CT DLP: 1159.4 mGycm. Automated exposure control for dose reduction was used. TECHNIQUE: Contiguous axial scanning of the abdomen and pelvis without IV contrast. Coronal and sagit aryan reconstructions performed. FINDINGS: There are left-sided rib fractures of varying age. Subacute to acute laterally involving the fifth an d sixth ribs. Posterolateral involving the left eighth rib. Further clinical correlation is recommend ed. Generalized anasarca change. Heart mildly enlarged without pericardial effusion. Coronary artery calcifications are present with a n occluder device within the left atrial appendage. [id number] right and small left pleural effusions with prominent patchy bibasilar opacities an d background mild emphysema. Noncontrast appearance of the liver, adrenal glands, kidneys, spleen, atrophic pancreas show no gross evaluate. The presence of anasarca, lack of contrast, and artifact from the patient's arms being down limits ev aluation. No dilated small bowel, free fluid, or free air is seen. Scattered minimal stool. There is left-sided colonic diverticulosis, greatest in the sigmoid colon. N o definite pericolonic inflammatory changes seen. Kidneys show vascular calcifications. No evident hydronephrosis on either side and no definite nephro lithiasis. Assessment of the pelvis is limited due to extensive metal artifact related to the patient's right hi p total arthroplasty. The bladder is partially distended. Uterus may be retroflexed. Suspect small bi lateral ovaries, not well delineated due to nonopacified bowel loops. No obvious pelvic adenopathy se en though again, assessment is limited. Bones: Osteopenia. Advanced spondylotic change with a degenerative curvature of the lumbar spine. IMPRESSION: 1. Exam limitations due to large body habitus, noise artifacts, marked generalized anasarca, lack of contrast, artifact from the patient's arms being down, and prominent artifact from the patient's rig ht hip replacement. 2. Left-sided rib fractures of varying age. Possible acute to subacute involving lateral fifth and s ixth ribs and posterolateral eighth rib. Clinically correlate. 3. Given cardiomegaly with small to moderate right and small left pleural effusions, correlate for C HF. 4. Additional patchy bibasilar opacities that the infiltrates are patchy pulmonary edema. Correlate with symptoms. 5. No nephrolithiasis or hydronephrosis. Renal vascular calcifications are seen. [facility], , 01/25/2024 2:46 PM
[2024-01-25 16:28] LABS: Glucose,Whole Blood 336 mg/dL (70-110)
[2024-01-25 21:09] LABS: Glucose,Whole Blood 219 mg/dL (70-110)
[2024-01-26 02:29] LABS: Glucose,Whole Blood 212 mg/dL (70-110)
[2024-01-26 06:40] LABS: Glucose,Whole Blood 138 mg/dL (70-110)
[2024-01-26 08:32] LABS: Basophils # (A) 0.06 X 10*3/uL (0.00-0.10); Basophils % (A) 1.1 %; Eosinophils # (A) 0.14 X 10*3/uL (0.04-0.35); Eosinophils % (A) 2.5 %; HCT 40.1 % (37.2-46.3); HGB 11.7 g/dL (12.0-15.0); Lymphocytes # (A) 0.97 X 10*3/uL (0.90-5.00); Lymphocytes % (A) 17.6 %; MCH 24.6 pg (27.0-32.0); MCHC 29.2 g/dL (32.0-37.0); MCV 84.4 FL (80.0-97.0); Mean Platelet Volume 10.5 FL (9.5-12.2); Monocytes # (A) 0.89 X 10*3/uL (0.20-1.00); Monocytes % (A) 16.2 %; NRBC Per 100 WBC 0 X 10*3/uL (0.00-0.01); Neutrophils # (A) 3.44 X 10*3/uL (1.80-7.70); Neutrophils % (A) 62.4 %; Platelet Count 206 X 10*3/uL (140-440); RBC 4.75 X 10*6/uL (4.10-5.20); RDW 18.6 % (11.5-14.5); WBC 5.51 X 10*3/uL (4.50-10.00)
[2024-01-26 09:03] LABS: Magnesium 1.2 mg/dL (1.5-2.4)
[2024-01-26 09:51] LABS: BUN/Creat Ratio 17.12 Ratio (12.00-20.00); Blood Urea Nitrogen 13.7 mg/dL (9.0-27.0); Calcium 8.4 mg/dL (8.7-10.3); Carbon Dioxide 38.1 mmol/L (21.6-31.8); Chloride 99 mmol/L (96-109); Glucose 195 mg/dL (70-110); Potassium 3.6 mmol/L (3.5-5.5); Sodium 145 mmol/L (135-145)
[2024-01-26] MEDS ORDERED: Potassium Replacement Protocol 1 EACH MISC MISCELLANE PRN (10:25)
[2024-01-26] MEDS ORDERED: Magnesium Replacement Protocol 1 EACH MISC MISCELLANE PRN (10:25)
[2024-01-26 11:56] LABS: Glucose,Whole Blood 353 mg/dL (70-110)
--- NOTE | 2024-01-26 14:59 | P.PN ---
Subjective Progress Note Date: 01/25/24 Principal diagnosis: Reason for follow-up is positive urine culture Patient is a 73-year-old female with a past medical history significant for diabetes mellitus hypertension atrial fibrillation, presenting to the hospital 6 days ago after apparently the patient was found to be unresponsive at home, patient did have a positive urine culture with Tonie species not albicans prompted this consultation. On today's evaluation that is 01/25/2024,the patient denies any fever or any chills, patient is breathing comfortably on 2 L current oxygen, the patient denies chest pain shortness of breath and no significant cough, patient denies abdominal pain, no nausea vomiting or diarrhea. Patient currently denies any urinary symptoms. Patient white count is 4.88, creatinine 0.8 Objective - Vital Signs Vital signs: Vital Signs Temp 98.2 F 01/25/24 07:47 Pulse 83 01/25/24 07:47 Resp 16 01/25/24 07:47 BP 140/70 01/25/24 09:00 Pulse Ox 100 01/25/24 07:47 FiO2 Intake & Output 01/24/24 01/25/24 01/25/24 18:59 06:59 18:59 Weight 88.3 kg Other: Voiding Method Toilet # Voids 3 2 # Bowel Movements 1 1 - Exam GENERAL DESCRIPTION: An elderly female up in the chair in no distress RESPIRATORY SYSTEM: Unlabored breathing , decreased breath sounds at bases HEART: S1 S2 regular rate and rhythm , ABDOMEN: Soft , no tenderness EXTREMITIES: No edema feet - Labs CBC & Chem 7: 01/26/24 04:21 01/26/24 04:21 Labs: Abnormal Lab Results - Last 24 Hours (Table) 01/24/24 01/24/24 01/24/24 Range/Units 14:23 16:16 20:58 Hgb (12.0-15.0) g/dL MCH (27.0-32.0) pg MCHC (32.0-37.0) g/dL RDW (11.5-14.5) % Lymphocytes # (0.90-5.00) X 10*3/uL Sodium (135-145) mmol/L Potassium (3.5-5.5) mmol/L Carbon Dioxide (21.6-31.8) mmol/L BUN/Creatinine Ratio (12.00-20.00) Ratio Glucose (70-110) mg/dL POC Glucose (mg/dL) 243 H 271 H (70-110) mg/dL Urine Appearance Cloudy H (Clear) Urine Blood Trace H (Negative) Ur Leukocyte Esterase Large H (Negative) Urine WBC >182 H (0-5) /hpf Urine Bacteria Rare H (None) /hpf Hyaline Casts 5 H (0-2) /lpf Urine Mucus Rare H (None) /hpf Urine Yeast (Budding) Rare H (None) /hpf 01/25/24 01/25/24 01/25/24 Range/Units 01:45 05:02 05:02 Hgb 11.1 L (12.0-15.0) g/dL MCH 25.3 L (27.0-32.0) pg MCHC 29.4 L (32.0-37.0) g/dL RDW 18.5 H (11.5-14.5) % Lymphocytes # 0.88 L (0.90-5.00) X 10*3/uL Sodium 146 H (135-145) mmol/L Potassium 3.2 L (3.5-5.5) mmol/L Carbon Dioxide 32.5 H (21.6-31.8) mmol/L BUN/Creatinine Ratio 21.00 H (12.00-20.00) Ratio Glucose 116 H (70-110) mg/dL POC Glucose (mg/dL) 150 H (70-110) mg/dL Urine Appearance (Clear) Urine Blood (Negative) Ur Leukocyte Esterase (Negative) Urine WBC (0-5) /hpf Urine Bacteria (None) /hpf Hyaline Casts (0-2) /lpf Urine Mucus (None) /hpf Urine Yeast (Budding) (None) /hpf 01/25/24 Range/Units 11:05 Hgb (12.0-15.0) g/dL MCH (27.0-32.0) pg MCHC (32.0-37.0) g/dL RDW (11.5-14.5) % Lymphocytes # (0.90-5.00) X 10*3/uL Sodium (135-145) mmol/L Potassium (3.5-5.5) mmol/L Carbon Dioxide (21.6-31.8) mmol/L BUN/Creatinine Ratio (12.00-20.00) Ratio Glucose (70-110) mg/dL POC Glucose (mg/dL) 136 H (70-110) mg/dL Urine Appearance (Clear) Urine Blood (Negative) Ur Leukocyte Esterase (Negative) Urine WBC (0-5) /hpf Urine Bacteria (None) /hpf Hyaline Casts (0-2) /lpf Urine Mucus (None) /hpf Urine Yeast (Budding) (None) /hpf Microbiology - Last 24 Hours (Table) 01/23/24 18:24 Urine Culture - Preliminary Urine,Voided Assessment and Plan (1) UTI (urinary tract infection) Current Visit: Yes Status: Acute Code(s): N39.0 - URINARY TRACT INFECTION, SITE NOT SPECIFIED SNOMED Code(s): 47865610 Plan: 1patient presented to the hospital with episode of unresponsiveness noted to be hypoglycemic patient may have a Zuniga catheter initial part of this admission putting her at risk of UTI with urine culture subsequently finalized with Tonie species not albicans however the patient denies having any burning or frequency of urine no suprapubic or flank pain denies having any vaginal itching or drainage possibly asymptomatic bacteriuria 2-repeat UA still positive however patient currently denies any urinary symptoms and will monitor closely off antifungal therapy Dictation was produced using [employer] dictation software. please excuse any grammatical, word or spelling errors. Time with Patient: Less than 30
--- NOTE | 2024-01-26 15:00 | P.PN ---
Subjective Progress Note Date: 01/26/24 Principal diagnosis: Reason for follow-up is positive urine culture Patient is a 73-year-old female with a past medical history significant for diabetes mellitus hypertension atrial fibrillation, presenting to the hospital 6 days ago after apparently the patient was found to be unresponsive at home, patient did have a positive urine culture with Tonie species not albicans prompted this consultation. On today's evaluation that is 01/26/2024,the patient remains to be afebrile, patient is on 2 L nasal cannula supplemental oxygen and denies any shortness of breath no chest pain or cough.Patient denies having any nausea or vomiting, no abdominal pain and no diarrhea has been reported, denies any urinary symptoms. White count is 5.51, creatinine 0.8 urine with Tonie glabrata Objective - Vital Signs Vital signs: Vital Signs Temp 97.7 F 01/26/24 13:38 Pulse 52 L 01/26/24 13:38 Resp 18 01/26/24 13:38 BP 141/84 01/26/24 13:38 Pulse Ox 91 L 01/26/24 13:38 FiO2 Intake & Output 01/25/24 01/26/24 01/26/24 18:59 06:59 18:59 Weight 88.3 kg 88.5 kg Other: Voiding Method Toilet # Voids 5 4 # Bowel Movements 2 - Exam GENERAL DESCRIPTION: An elderly female up in the chair in no distress RESPIRATORY SYSTEM: Unlabored breathing , decreased breath sounds at bases HEART: S1 S2 regular rate and rhythm , ABDOMEN: Soft , no tenderness EXTREMITIES: No edema feet - Labs CBC & Chem 7: 01/26/24 04:21 01/26/24 04:21 Labs: Abnormal Lab Results - Last 24 Hours (Table) 01/25/24 01/25/24 01/26/24 Range/Units 16:26 21:08 02:28 Hgb (12.0-15.0) g/dL MCH (27.0-32.0) pg MCHC (32.0-37.0) g/dL RDW (11.5-14.5) % Carbon Dioxide (21.6-31.8) mmol/L Glucose (70-110) mg/dL POC Glucose (mg/dL) 336 H 219 H 212 H (70-110) mg/dL Calcium (8.7-10.3) mg/dL Magnesium (1.5-2.4) mg/dL 01/26/24 01/26/24 01/26/24 Range/Units 04:21 04:21 06:38 Hgb 11.7 L (12.0-15.0) g/dL MCH 24.6 L (27.0-32.0) pg MCHC 29.2 L (32.0-37.0) g/dL RDW 18.6 H (11.5-14.5) % Carbon Dioxide 38.1 H (21.6-31.8) mmol/L Glucose 195 H (70-110) mg/dL POC Glucose (mg/dL) 138 H (70-110) mg/dL Calcium 8.4 L (8.7-10.3) mg/dL Magnesium 1.2 L (1.5-2.4) mg/dL 01/26/24 Range/Units 11:55 Hgb (12.0-15.0) g/dL MCH (27.0-32.0) pg MCHC (32.0-37.0) g/dL RDW (11.5-14.5) % Carbon Dioxide (21.6-31.8) mmol/L Glucose (70-110) mg/dL POC Glucose (mg/dL) 353 H (70-110) mg/dL Calcium (8.7-10.3) mg/dL Magnesium (1.5-2.4) mg/dL Microbiology - Last 24 Hours (Table) 01/23/24 18:24 Urine Culture - Final Urine,Voided Tonie glabrata Assessment and Plan (1) UTI (urinary tract infection) Current Visit: Yes Status: Acute Code(s): N39.0 - URINARY TRACT INFECTION, SITE NOT SPECIFIED SNOMED Code(s): 78665483 Plan: 1patient presented to the hospital with episode of unresponsiveness noted to be hypoglycemic patient may have a Zuniga catheter initial part of this admission putting her at risk of UTI with urine culture subsequently finalized with Tonie species not albicans however the patient denies having any burning or frequency of urine no suprapubic or flank pain denies having any vaginal itching or drainage possibly asymptomatic bacteriuria 2-repeat UA still positive and culture came positive with Tonie glabrata however the patient continued to deny any urinary symptoms more likely asy mptomatic funguria and will hold on adding any antifungal at this point Dictation was produced using [employer] software. please excuse any grammatical, word or spelling errors. Time with Patient: Less than 30
[2024-01-26] MEDS: FUROSEMIDE 40 MG TAB PO SCH (15:37)
[2024-01-26 16:39] LABS: Glucose,Whole Blood 176 mg/dL (70-110)
--- NOTE | 2024-01-26 17:46 | P.CRDCN ---
History of Present Illness History of present illness: Patient is sitting comfortably in bed. She is less short of breath today Blood pressures 141/84 mmHg pulse rate in the 50s and 60s She remains in atrial fibrillation that is rate controlled on a total of 200 mg of metoprolol succinate Since she had severe heart failure symptoms I started her on Entresto and stopped losartan From a heart failure standpoint she seems to have improved although her blood pressure is still quite elevated 2D echo has shown severe LV dysfunction but she also has severe tricuspid regurgitation with RV enlargement On examination breath sounds are reduced bilaterally Systolic murmur over the precordium She still has engorged neck veins White count normal hemoglobin 11.7 Platelet count 206,000 Sodium and potassium are normal potassium 3.6 BUN is 13.7 creatinine 0.8 Magnesium 1.2 Impression rate controlled atrial fibrillation, on metoprolol succinate 200 mg a day in split doses On Eliquis 5 mg twice daily Congestive heart failure with LV systolic dysfunction acute on chronic RV enlargement with TR Mitral regurgitation On heart failure therapy with Entresto 24/26 mg twice daily, spironolactone 25 mg daily and metoprolol succinate She is on p.o. Lasix today 40 mg twice daily Magnesium is low Suggest Increase spironolactone to 50 mg p.o. daily Increase Entresto to 49/51 mg p.o. twice daily Thereafter consider Farxiga Replace magnesium Continue atorvastatin Continue Eliquis transfer to Past Medical History Past Medical History: Atrial Fibrillation, Diabetes Mellitus, Hypertension Additional Past Medical History / Comment(s): extensive cardiac history per EMS History of Any Multi-Drug Resistant Organisms: None Reported Past Surgical History: No Surgical Hx Reported Past Psychological History: No Psychological Hx Reported Smoking Status: Former smoker Past Alcohol Use History: None Reported Past Drug Use History: None Reported Medications and Allergies Home Medications Medication Instructions Recorded Confirmed Type Acetaminophen Tab [Tylenol] 500 mg PO Q6HR PRN 01/18/24 01/18/24 History Apixaban [Eliquis] 5 mg PO BID 01/18/24 01/18/24 History Aspirin 81 mg PO DIRECTED 01/18/24 01/18/24 History Canagliflozin [Invokana] 300 mg PO DAILY 01/18/24 01/18/24 History Cholecalciferol [Vitamin D3 (25 25 mcg PO DAILY 01/18/24 01/18/24 History Mcg = 1000 Iu)] Clopidogrel [Plavix] 75 mg PO DAILY 01/18/24 01/18/24 History Fenofibrate Nanocrystallized 145 mg PO DAILY 01/18/24 01/18/24 History [Fenofibrate] Flecainide Acetate [Tambocor] 100 mg PO BID 01/18/24 01/18/24 History Folic Acid 1 mg PO DAILY 01/18/24 01/18/24 History Furosemide [Lasix] 20 mg PO DAILY 01/18/24 01/18/24 History Gabapentin [Neurontin] 200 mg PO HS 01/18/24 01/18/24 History Insulin Lispro [humaLOG Kwikpen] 10 unit SQ AC-TID 01/18/24 01/18/24 History Insulin Lispro [humaLOG Kwikpen] See Protocol SQ AC-TID 01/18/24 01/18/24 History Latanoprost [Latanoprost 0.005%] 1 drop BOTH EYES HS 01/18/24 01/18/24 History Losartan [Cozaar] 50 mg PO DAILY 01/18/24 01/18/24 History Melatonin 10 mg PO HS 01/18/24 01/18/24 History Metoprolol Succinate (ER) [Toprol 100 mg PO BID 01/18/24 01/18/24 History XL] Naloxone HCl [Narcan] 4 mg NASAL ONCE PRN 01/18/24 01/18/24 History Nitroglycerin Sl Tabs [Nitrostat] 0.4 mg SUBLINGUAL Q5M PRN 01/18/24 01/18/24 History Omeprazole [PriLOSEC] 20 mg PO AC-BRKFST 01/18/24 01/18/24 History Potassium Chloride [Klor-Con M10] 10 meq PO DAILY 01/18/24 01/18/24 History Sertraline [Zoloft] 100 mg PO DAILY 01/18/24 01/18/24 History Simvastatin [Zocor] 20 mg PO HS 01/18/24 01/18/24 History oxyCODONE-APAP 5-325MG [Percocet 1 tab PO DAILY 01/18/24 01/18/24 History 5-325 mg] Insulin Glargine,Hum.rec.anlog 15 units SQ HS #0 01/22/24 01/18/24 Rx [Lantus Solostar Pen] Allergies Allergy/AdvReac Type Severity Reaction Status Date / Time codeine Allergy Rash/Hives Verified 01/18/24 10:10 iodine Allergy Rash/Hives Verified 01/18/24 10:10 Physical Exam Vitals: Vital Signs Temp Pulse Resp BP Pulse Ox 01/26/24 13:38 97.7 F 52 L 18 141/84 91 L 01/26/24 06:56 98.2 F 85 17 163/97 99 01/26/24 00:51 97.8 F 75 17 146/85 96 01/25/24 19:49 97.9 F 68 18 155/79 96 Intake and Output 01/26/24 01/26/24 01/26/24 06:59 14:59 22:59 Other: # Voids 4 Weight 88.5 kg Results 01/26/24 04:21 01/26/24 04:21 CBC 01/26/24 Range/Units 04:21 WBC 5.51 (4.50-10.00) X 10*3/uL RBC 4.75 (4.10-5.20) X 10*6/uL Hgb 11.7 L (12.0-15.0) g/dL Hct 40.1 (37.2-46.3) % Plt Count 206 (140-440) X 10*3/uL Comprehensive Metabolic Panel 01/26/24 Range/Units 04:21 Sodium 145 (135-145) mmol/L Potassium 3.6 (3.5-5.5) mmol/L Chloride 99 (96-109) mmol/L Carbon Dioxide 38.1 H (21.6-31.8) mmol/L BUN 13.7 (9.0-27.0) mg/dL Creatinine 0.8 (0.6-1.5) mg/dL Glucose 195 H (70-110) mg/dL Calcium 8.4 L (8.7-10.3) mg/dL Current Medications Generic Name Dose Route Start Last Admin Trade Name Freq PRN Reason Stop Dose Admin Acetaminophen 500 mg 01/18/24 17:52 01/26/24 05:15 Acetaminophen Tab 500 Mg Tab PO 500 mg Q6HR PRN Administration Pain Apixaban 5 mg 01/18/24 21:00 01/26/24 08:01 Apixaban 5 Mg Tab PO 5 mg BID DORITA Administration Protocol Atorvastatin Calcium 20 mg 01/24/24 21:00 01/25/24 21:46 Atorvastatin 20 Mg Tab PO 20 mg HS DORITA Administration Cholecalciferol 25 mcg 01/19/24 09:00 01/26/24 08:01 Cholecalciferol 25 Mcg (1000 Iu) Tablet PO 25 mcg DAILY DORITA Administration Clopidogrel Bisulfate 75 mg 01/19/24 09:00 01/26/24 08:01 Clopidogrel 75 Mg Tab PO 75 mg DAILY DORITA Administration Dextrose/Water 25 ml 01/18/24 17:22 Dextrose 50% Syringe 50 Ml IVP PER PROTOCOL PRN Hypoglycemia Protocol Dextrose/Water 50 ml 01/18/24 17:22 Dextrose 50% Syringe 50 Ml IVP PER PROTOCOL PRN Hypoglycemia Protocol Fenofibrate 160 mg 01/24/24 09:00 01/26/24 08:01 Fenofibrate 160 Mg Tab PO 160 mg DAILY DORITA Administration Folic Acid 1 mg 01/19/24 09:00 01/26/24 08:01 Folic Acid 1 Mg Tab PO 1 mg DAILY DORITA Administration Furosemide 40 mg 01/26/24 16:00 01/26/24 15:37 Furosemide 40 Mg Tab PO 40 mg BID@0900,1600 DORITA Administration Gabapentin 200 mg 01/18/24 21:00 01/25/24 21:46 Gabapentin 100 Mg Cap PO 200 mg HS DORITA Administration Insulin Aspart 0 unit 01/18/24 12:30 01/26/24 12:06 Insulin Aspart (Novolog) 100 Unit/Ml Vial SQ 10 unit AC-TID DORITA Administration Protocol Insulin Detemir 15 unit 01/26/24 21:00 Insulin Detemir (Levemir) 100 Unit/Ml Syr SQ HS DORITA Latanoprost 1 drops 01/18/24 21:00 01/25/24 21:47 Latanoprost 0.005% Ophth Drops 2.5 Ml Btl BOTH EYES 1 drops HS DORITA Administration Melatonin 10 mg 01/18/24 21:00 01/25/24 21:46 Melatonin 5 Mg Tablet PO 10 mg HS DORITA Administration Metoprolol Succinate 100 mg 01/18/24 21:00 01/26/24 08:00 Metoprolol Succinate (Er) 100 Mg Tab.Er.24h PO 100 mg BID DORITA Administration Miscellaneous Information 1 each 01/25/24 12:15 Potassium Replacement Protocol 1 Each Misc MISCELLANE DAILY PRN Per Protocol Protocol Miscellaneous Information 1 each 01/25/24 12:15 Magnesium Replacement Protocol 1 Each Misc MISCELLANE DAILY PRN Per Protocol Protocol Miscellaneous Information 1 each 01/26/24 10:25 Magnesium Replacement Protocol 1 Each Misc MISCELLANE DAILY PRN Per Protocol Protocol Miscellaneous Information 1 each 01/26/24 10:25 Potassium Replacement Protocol 1 Each Misc MISCELLANE DAILY PRN Per Protocol Protocol Naloxone HCl 0.2 mg 01/18/24 11:32 Naloxone 0.4 Mg/Ml 1 Ml Vial IV Q2M PRN Opioid Reversal Nitroglycerin 0.4 mg 01/18/24 17:52 Nitroglycerin Sl Tabs 0.4 Mg Tab SUBLINGUAL Q5M PRN Chest Pain Oxycodone/Acetaminophen 1 each 01/21/24 20:30 01/26/24 08:01 Oxycodone-Apap 5-325mg 1 Each Tab PO 1 each DAILY DORITA Administration Pantoprazole Sodium 40 mg 01/19/24 09:00 01/26/24 08:01 Pantoprazole 40 Mg/10 Ml Vial IVP 40 mg DAILY DORITA Administration Sacubitril/Valsartan 2 each 01/26/24 21:00 Sacubitril/Valsartan 24 Mg-26 Mg Tablet PO BID DORITA Sertraline HCl 100 mg 01/19/24 09:00 01/26/24 08:01 Sertraline 100 Mg Tab PO 100 mg DAILY DORITA Administration Spironolactone 50 mg 01/27/24 09:00 Spironolactone 25 Mg Tab PO DAILY DORITA Intake and Output 01/26/24 01/26/24 01/26/24 06:59 14:59 22:59 Other: # Voids 4 Weight 88.5 kg 01/26/24 04:21 01/26/24 04:21
[2024-01-26 20:11] LABS: Glucose,Whole Blood 305 mg/dL (70-110)
[2024-01-26] MEDS: INSULIN DETEMIR (LEVEMIR) 100 UNIT/ML SYR SQ SCH (20:28)
[2024-01-26] MEDS: SACUBITRIL/VALSARTAN 24 MG-26 MG TABLET PO SCH (20:29)
--- NOTE | 2024-01-26 21:19 | PN ---
PROGRESS NOTE DATE OF SERVICE: 01/26/2024 SUBJECTIVE: This is a 73-year-old woman, who was admitted with CHF acute exacerbation, also had multiple other complex medical issues also. No fever. No cough. The patient had persistent pyuria. White count is normal. Magnesium is low. OBJECTIVE: VITAL SIGNS: Pulse is 85, blood pressure 160/97, respirations 17. CHEST: A few scattered rhonchi and crackles in the bases. ABDOMEN: Soft. NERVOUS SYSTEM: Nonfocal. LABORATORY DATA: Reviewed. ASSESSMENT: 1. Congestive heart failure acute exacerbation with acute on chronic systolic dysfunction, ejection fraction 35% to 40%. 2. Severe pulmonary hypertension on 2D echo. 3. Severe left atrial enlargement with moderate mitral regurgitation. 4. Diabetes mellitus, type 2 with hypo and hyperglycemia. 5. Tonie non-albicans and urinary tract infections and symptomatic fungal infection per ID. 6. Chronic atrial fibrillation. 7. Hypertension. 8. Hyperlipidemia. RECOMMENDATIONS AND DISCUSSION: I recommend to continue current medications and continue symptomatic treatment. Otherwise, at this time, continue with diuretics. Monitor closely. Closely follow with Cardiology. Increase ambulation. Guarded prognosis. Further recommendations to follow. MMODL / IJN: [id number] /
[2024-01-27 02:24] LABS: Glucose,Whole Blood 154 mg/dL (70-110)
[2024-01-27 06:33] LABS: Glucose,Whole Blood 82 mg/dL (70-110)
[2024-01-27] MEDS: SPIRONOLACTONE 25 MG TAB PO SCH (08:02)
[2024-01-27 08:47] VITALS: BP 132/77; PULSE 78; RESP 18; TEMP 98.5
[2024-01-27 08:57] LABS: Basophils # (A) 0.08 X 10*3/uL (0.00-0.10); Basophils % (A) 1.4 %; Eosinophils # (A) 0.19 X 10*3/uL (0.04-0.35); Eosinophils % (A) 3.4 %; HCT 40.1 % (37.2-46.3); HGB 11.8 g/dL (12.0-15.0); Lymphocytes % (A) 19.5 %; MCH 25.5 pg (27.0-32.0); MCHC 29.4 g/dL (32.0-37.0); MCV 86.6 FL (80.0-97.0); Monocytes # (A) 0.89 X 10*3/uL (0.20-1.00); Monocytes % (A) 15.8 %; NRBC Per 100 WBC 0 X 10*3/uL (0.00-0.01); Neutrophils # (A) 3.38 X 10*3/uL (1.80-7.70); Neutrophils % (A) 59.7 %; Platelet Count 202 X 10*3/uL (140-440); RBC 4.63 X 10*6/uL (4.10-5.20); RDW 18.6 % (11.5-14.5); WBC 5.65 X 10*3/uL (4.50-10.00)
[2024-01-27 09:42] LABS: Magnesium 1.2 mg/dL (1.5-2.4)
[2024-01-27 09:47] LABS: Calcium 8.4 mg/dL (8.7-10.3); Carbon Dioxide 36.5 mmol/L (21.6-31.8); Chloride 99 mmol/L (96-109); Glucose 94 mg/dL (70-110); Potassium 3.2 mmol/L (3.5-5.5); Sodium 144 mmol/L (135-145)
[2024-01-27] MEDS ORDERED: Potassium Replacement Protocol 1 EACH MISC MISCELLANE PRN (10:01)
[2024-01-27] MEDS ORDERED: Magnesium Replacement Protocol 1 EACH MISC MISCELLANE PRN (10:01)
[2024-01-27] MEDS: POTASSIUM CHLORIDE ER 20 MEQ TAB.ER PO SCH (10:13)
[2024-01-27] MEDS: MAGNESIUM SULFATE-D5W PMX 1 GM in DEXTROSE/WATER 1 100ML.BAG IVPB SCH (10:13)
[2024-01-27 11:39] LABS: Glucose,Whole Blood 101 mg/dL (70-110)
--- NOTE | 2024-01-27 13:15 | P.PN ---
Subjective Progress Note Date: 01/27/24 Principal diagnosis: Reason for follow-up is positive urine culture Patient is a 73-year-old female with a past medical history significant for diabetes mellitus hypertension atrial fibrillation, presenting to the hospital 6 days ago after apparently the patient was found to be unresponsive at home, patient did have a positive urine culture with Tonie species not albicans prompted this consultation. On today's evaluation that is 01/27/2024, the patient continues to be afebrile, the patient is on 2 L nasal cannula oxygen and breathing comfortably, the Pt denies having any chest pain or cough, the patient denies having any abdominal pain no vomiting or any diarrhea has been reported by the nursing staff, patient mention feeling better wants to go home. Patient white count is 5.65, creatinine 0.6 Objective - Vital Signs Vital signs: Vital Signs Temp 98.5 F 01/27/24 06:52 Pulse 78 01/27/24 06:52 Resp 18 01/27/24 06:52 BP 132/77 01/27/24 06:52 Pulse Ox 100 01/27/24 10:36 FiO2 Intake & Output 01/26/24 01/27/24 01/27/24 18:59 06:59 18:59 Weight 88.5 kg Other: Voiding Method Toilet # Voids 3 2 # Bowel Movements 1 - Exam GENERAL DESCRIPTION: An elderly female up in the chair in no distress RESPIRATORY SYSTEM: Unlabored breathing , decreased breath sounds at bases HEART: S1 S2 regular rate and rhythm , ABDOMEN: Soft , no tenderness EXTREMITIES: No edema feet - Labs CBC & Chem 7: 01/27/24 06:05 01/27/24 06:05 Labs: Abnormal Lab Results - Last 24 Hours (Table) 01/26/24 01/26/24 01/27/24 Range/Units 16:38 20:08 02:22 Hgb (12.0-15.0) g/dL MCH (27.0-32.0) pg MCHC (32.0-37.0) g/dL RDW (11.5-14.5) % Potassium (3.5-5.5) mmol/L Carbon Dioxide (21.6-31.8) mmol/L POC Glucose (mg/dL) 176 H 305 H 154 H (70-110) mg/dL Calcium (8.7-10.3) mg/dL Magnesium (1.5-2.4) mg/dL 01/27/24 01/27/24 Range/Units 06:05 06:05 Hgb 11.8 L (12.0-15.0) g/dL MCH 25.5 L (27.0-32.0) pg MCHC 29.4 L (32.0-37.0) g/dL RDW 18.6 H (11.5-14.5) % Potassium 3.2 L (3.5-5.5) mmol/L Carbon Dioxide 36.5 H (21.6-31.8) mmol/L POC Glucose (mg/dL) (70-110) mg/dL Calcium 8.4 L (8.7-10.3) mg/dL Magnesium 1.2 L (1.5-2.4) mg/dL Assessment and Plan (1) UTI (urinary tract infection) Current Visit: Yes Status: Acute Code(s): N39.0 - URINARY TRACT INFECTION, SITE NOT SPECIFIED SNOMED Code(s): 49708783 Plan: 1patient presented to the hospital with episode of unresponsiveness noted to be hypoglycemic patient may have a Zuniga catheter initial part of this admission putting her at risk of UTI with urine culture subsequently finalized with Tonie species not albicans however the patient denies having any burning or frequency of urine no suprapubic or flank pain denies having any vaginal itching or drainage possibly asymptomatic bacteriuria 2-repeat UA positive in the cultures came back with Tonie glabrata however the patient continued to deny any urinary symptoms of burning frequency no vaginal drainage or itching, more likely asymptomatic funguria and will hold on adding any antifungal at this point Dictation was produced using [employer] software. please excuse any grammatical, word or spelling errors. Time with Patient: Less than 30
[2024-01-27] MEDS ORDERED: POTASSIUM CHLORIDE ER 20 MEQ TAB.ER PO SCH (21:00)
--- NOTE | 2024-01-29 08:24 | P.DS ---
Providers Date of admission: 01/18/24 11:34 Expected date of discharge: 01/27/24 Attending physician: Navneet Bryson Consults: 01/23/24 14:31 Consult Physician Routine Consulting Provider: Josr Musa Consult Reason/Comments: fungal uti Do you want consulting provider notified?: Yes Consult Physician Routine Consulting Provider: Aristides Mehta Consult Reason/Comments: chf Do you want consulting provider notified?: Yes Primary care physician: Laine Casillas DO Hospital Course: Final diagnosis Congestive heart failure acute exacerbation with acute on chronic systolic d ysfunction, EF is 35 to 40% Acute hypoxic respiratory failure secondary to above, patient will require oxygen on discharge to manage CHF Severe pulmonary hypertension on 2D echo Severe left atrial enlargement with moderate mitral regurgitation Diabetes mellitus, type II, uncontrolled with hypo and hyperglycemia Tonie nonalbicans and urinary tract infection and symptomatic fungal infection, present on admission per ID Chronic atrial fibrillation Hypertension Hyperlipidemia Obesity with a BMI of 38.1 GI prophylaxis DVT prophylaxis Full code Discharge disposition Patient is being discharged in a stable condition with guarded prognosis to home. Patient will follow-up with Dr. Casillas in the outpatient setting upon discharge. Patient is to continue with current medications and close outpatient follow-up with cardiology, pulmonary, endocrine outpatient as scheduled. Total time taken is greater than 35 minutes. Hospital course This is a 73-year-old female who was recently admitted with shortness of breath requiring oxygen secondary to CHF exacerbation. Patient also with concerns of recurrent UTIs although patient is reporting no symptoms likely asymptomatic bacteriuria recommend outpatient follow-up with urology. Patient was maintained on IV diuresis doing well has been cleared for discharge home by cardiology with close outpatient follow-up. Multiple medication changes during this hospitalization and patient has been instructed to follow-up within the next week. Patient reports to feeling improved although will require oxygen on discharge to manage CHF exacerbation. Please refer to other consultation notes for further HPI. Currently no reports of chest pain, shortness of breath, or palpitations. Patient is afebrile. No reports of nausea or vomiting and patient is tolerating diet. Patient reports to feeling much improved and adamant about going home today. Patient will be discharged home. Guarded prognosis given significant comorbidities. Physical exam: Gen: This is a 73-year-old female who is awake, alert and oriented x 3, well- developed, elderly appearing, obese HEENT: Head is atraumatic, normocephalic. Pupils equal, round. Sclerae is anicteric. NECK: Supple. No JVD. No lymphadenopathy. No thyromegaly. LUNGS: Diminished breath sounds bilaterally otherwise clear to auscultation. No wheezes or rhonchi. No intercostal retractions. HEART: S1, S2 are muffled ABDOMEN: Soft. Obese. Bowel sounds are present. No masses. No tenderness. EXTREMITIES: No pedal edema. No calf tenderness. Generalized lower extremity edema noted bilaterally, nonpitting NEUROLOGICAL: Patient is awake, alert and oriented x3. Cranial nerves 2 through 12 are grossly intact. Please refer to medication reconciliation sheet for a list of medications. The impression and plan of care has been dictated by Natalie Zapata, Nurse Practitioner as directed. Dr. Braydon MD I have performed a history and examination and MDM of this patient, discussed the same with the dictator, and agree with the dictator's assessment and plan as written ,documented as a scribe. Based on total visit time, I have performed more than 50% of the visit. Patient Condition at Discharge: Fair Plan - Discharge Summary New Discharge Prescriptions: New Ipratropium/Albuter 20-100Mcg [Combivent Respimat 20-100Mcg Inhaler] 1 puff INHALATION DAILY 30 Days #4 gm Sacubitril/Valsartan [Entresto 24 mg-26 mg Tablet] 2 each PO BID #60 tab Furosemide [Lasix] 40 mg PO BID@0900,1600 #60 tab Budesonide-Formot 160-4.5 Mcg [Symbicort 160-4.5 Mcg Inhaler] 2 puff INHALATION BID #10.2 gm Spironolactone [Aldactone] 50 mg PO DAILY #30 tab Continue Omeprazole [PriLOSEC] 20 mg PO AC-BRKFST Latanoprost [Latanoprost 0.005%] 1 drop BOTH EYES HS Naloxone HCl [Narcan] 4 mg NASAL ONCE PRN PRN Reason: OVERDOSE Acetaminophen Tab [Tylenol] 500 mg PO Q6HR PRN PRN Reason: Pain oxyCODONE-APAP 5-325MG [Percocet 5-325 mg] 1 tab PO DAILY Gabapentin [Neurontin] 200 mg PO HS Insulin Lispro [humaLOG Kwikpen] See Protocol SQ AC-TID Canagliflozin [Invokana] 300 mg PO DAILY Cholecalciferol [Vitamin D3 (25 Mcg = 1000 Iu)] 25 mcg PO DAILY Aspirin 81 mg PO DIRECTED Nitroglycerin Sl Tabs [Nitrostat] 0.4 mg SUBLINGUAL Q5M PRN PRN Reason: Chest Pain Metoprolol Succinate (ER) [Toprol XL] 100 mg PO BID Melatonin 10 mg PO HS Simvastatin [Zocor] 20 mg PO HS Sertraline [Zoloft] 100 mg PO DAILY Insulin Lispro [humaLOG Kwikpen] 10 unit SQ AC-TID Folic Acid 1 mg PO DAILY Fenofibrate Nanocrystallized [Fenofibrate] 145 mg PO DAILY Apixaban [Eliquis] 5 mg PO BID Clopidogrel [Plavix] 75 mg PO DAILY Changed Insulin Glargine,Hum.rec.anlog [Lantus Solostar Pen] 15 units SQ HS #0 Potassium Chloride [Klor-Con M10] 20 meq PO BID #120 tab Discontinued Flecainide Acetate [Tambocor] 100 mg PO BID Losartan [Cozaar] 50 mg PO DAILY Furosemide [Lasix] 20 mg PO DAILY Discharge Medication List Acetaminophen Tab [Tylenol] 500 mg PO Q6HR PRN 01/18/24 [History] Apixaban [Eliquis] 5 mg PO BID 01/18/24 [History] Aspirin 81 mg PO DIRECTED 01/18/24 [History] Canagliflozin [Invokana] 300 mg PO DAILY 01/18/24 [History] Cholecalciferol [Vitamin D3 (25 Mcg = 1000 Iu)] 25 mcg PO DAILY 01/18/24 [History] Clopidogrel [Plavix] 75 mg PO DAILY 01/18/24 [History] Fenofibrate Nanocrystallized [Fenofibrate] 145 mg PO DAILY 01/18/24 [History] Folic Acid 1 mg PO DAILY 01/18/24 [History] Gabapentin [Neurontin] 200 mg PO HS 01/18/24 [History] Insulin Lispro [humaLOG Kwikpen] 10 unit SQ AC-TID 01/18/24 [History] Insulin Lispro [humaLOG Kwikpen] See Protocol SQ AC-TID 01/18/24 [History] Latanoprost [Latanoprost 0.005%] 1 drop BOTH EYES HS 01/18/24 [History] Melatonin 10 mg PO HS 01/18/24 [History] Metoprolol Succinate (ER) [Toprol XL] 100 mg PO BID 01/18/24 [History] Naloxone HCl [Narcan] 4 mg NASAL ONCE PRN 01/18/24 [History] Nitroglycerin Sl Tabs [Nitrostat] 0.4 mg SUBLINGUAL Q5M PRN 01/18/24 [History] Omeprazole [PriLOSEC] 20 mg PO AC-BRKFST 01/18/24 [History] Sertraline [Zoloft] 100 mg PO DAILY 01/18/24 [History] Simvastatin [Zocor] 20 mg PO HS 01/18/24 [History] oxyCODONE-APAP 5-325MG [Percocet 5-325 mg] 1 tab PO DAILY 01/18/24 [History] Insulin Glargine,Hum.rec.anlog [Lantus Solostar Pen] 15 units SQ HS #0 01/22/24 [Rx] Budesonide-Formot 160-4.5 Mcg [Symbicort 160-4.5 Mcg Inhaler] 2 puff INHALATION BID #10.2 gm 01/27/24 [Rx] Furosemide [Lasix] 40 mg PO BID@0900,1600 #60 tab 01/27/24 [Rx] Ipratropium/Albuter 20-100Mcg [Combivent Respimat 20-100Mcg Inhaler] 1 puff INHALATION DAILY 30 Days #4 gm 01/27/24 [Rx] Potassium Chloride [Klor-Con M10] 20 meq PO BID #120 tab 01/27/24 [Rx] Sacubitril/Valsartan [Entresto 24 mg-26 mg Tablet] 2 each PO BID #60 tab 01/27/24 [Rx] Spironolactone [Aldactone] 50 mg PO DAILY #30 tab 01/27/24 [Rx] Follow up Appointment(s)/Referral(s): Laine Casillas DO [Primary Care Provider] - 1-2 Days [facility] [NON-STAFF] - As Needed (*Please call [facility] once home to arrange delivery of the Oxygen Concentrator. ) Pollo Neely MD [STAFF PHYSICIAN] - 1 Week (follow up outpatient for persistent pyuria) [facility] [NON-STAFF] - As Needed ([facility] will call you to schedule your in home nursing, aide, social work, physical therapy, and occupational therapy visits. ) Marine Cartagena [STAFF PHYSICIAN] - 1 Week (For your uncontrolled diabetes) Marc Bermudez MD [STAFF PHYSICIAN] - 1 Week Cheryl Bruno MD [STAFF PHYSICIAN] - 1 Week Ambulatory/Diagnostic Orders: Basic Metabolic Panel [LAB.AMB] Time Frame: 3 Days, Location: None Selected Patient Instructions/Handouts: Hypoglycemia in a Person with Diabetes (DC) Activity/Diet/Wound Care/Special Instructions: Activity limited until follow-up Follow-up with primary care provider on discharge Follow-up with pulmonary outpatient for further testing Follow-up with cardiology outpatient Continue with heart healthy diabetic diet and monitor blood sugars and keep a diary of all readings for follow-up Follow-up with endocrine outpatient Hold insulins if blood sugar is 100 or less Continue with fluid restrictions of 1200 cc daily Repeat labs in 2 to 3 days to monitor kidney functions and electrolytes Discharge Disposition: HOME SELF-CARE
== END 2024-01-27 17:20 | disposition home or self-care (01) | DRG 637 ==
LOC: EC 08:23 → 4SSUR 11:34
PROVIDERS: ADMIT Hospitalist; ATTEND Hospitalist
PROC: 05HF33Z Insertion of Infusion Device into Left Cephalic Vein, Percutaneous Approach (ICD-10-PCS; principal; 2024-01-24 12:00)
DX: E11.649 Type 2 diabetes mellitus with hypoglycemia without coma (principal); G92.8 Other toxic encephalopathy; I50.21 Acute systolic (congestive) heart failure; I50.23 Acute on chronic systolic (congestive) heart failure; J96.01 Acute respiratory failure with hypoxia; B49 Unspecified mycosis; I48.19 Other persistent atrial fibrillation; B37.49 Other urogenital candidiasis; Z66 Do not resuscitate; Z68.38 Body mass index [BMI] 38.0-38.9, adult; I11.0 Hypertensive heart disease with heart failure; I25.10 Atherosclerotic heart disease of native coronary artery without angina pectoris; E11.65 Type 2 diabetes mellitus with hyperglycemia; E66.9 Obesity, unspecified; E78.5 Hyperlipidemia, unspecified; I08.1 Rheumatic disorders of both mitral and tricuspid valves; I27.20 Pulmonary hypertension, unspecified; Z79.01 Long term (current) use of anticoagulants; Z79.02 Long term (current) use of antithrombotics/antiplatelets; Z79.4 Long term (current) use of insulin; Z79.84 Long term (current) use of oral hypoglycemic drugs; Z79.899 Other long term (current) drug therapy; Z87.891 Personal history of nicotine dependence; Z88.5 Allergy status to narcotic agent; Z91.041 Radiographic dye allergy status
CPT/HCPCS: 36410; 36415; 70450; 71045; 71046; 74176; 76937; 80048; 80053; 81001; 83036; 83605; 83735; 83880; 84145; 84443; 84484; 85025; 85610; 85730; 87040; 87086; 87636; 93005; 93306; 94760; 96365; 96366; 96375; 99291

== ENCOUNTER → 2024-03-07 | Outpatient (CLI) | payer MEDICARE ==
--- NOTE | 2024-03-07 16:18 | BD ---
EXAMINATION TYPE: Axial Bone Density DATE OF EXAM: 03/07/2024 CLINICAL HISTORY: 73 years old Female. ICD-10 CODE: S22.42XD MULTIPLE FX OF RIBS, LEFT SIDE, SUBS FO R , Z78.0 Height: 56 Weight: 156.0 FRAX RISK QUESTIONS: Alcohol (3 or more units per day): no Family History (Parent hip fracture): mother Glucocorticoids (More than 3mos): no (Ex: prednisone, prednisolone, methylprednisolone, dexamethasone, and hydrocortisone). History of Fracture in Adulthood: ribs, wrist, Secondary Osteoporosis: 1. Type 1 Diabetes: no 2. Hyperthyroidism: no 3. Menopause before 45: no 4. Malnutrition: no 5. Chronic liver disease: no Rheumatoid Arthritis: yes Current Tobacco Use: no RISK FACTORS HISTORY OF: Hip Fracture (Right/Left): no Spine Fracture: History of Wrist Fracture: RT When: 20 years ago Surgery to Spine/Hip(right/left)/Wrist (right/left): Rt hip replacement When: 2014 MEDICATIONS: Thyroid Medications: no Osteoporosis Medications: no EXAM MEASUREMENTS: Bone mineral densitometry was performed using the [employer] System. Bone mineral density as measured about the Lumbar spine is: ----- L1-L4(G/cm2): 1.233 T Score Values are as follows: ----- L1: 1.6 ----- L2: 0.3 ----- L3: 0.3 ----- L4: -0.3 ----- L1-L4: 0.4 Z Score Values are as follows: ----- L1: 3.1 ----- L2: 1.8 ----- L3: 1.8 ----- L4: 1.2 ----- L1-L4: 1.9 BASELINE STUDY Bone mineral density about the L hip (g/cm2): 0.752 T Score values are as follows: -----L Neck:-1.9 -----R Total: -2.0 Z Score values are as follows: -----L Neck: -0.3 -----L Total: -0.6 BASELINE STUDY FRAX%s: The graph provided illustrates a 22.7% chance for a major osteoporotic fx and a 8.2% chance f or the hips probability for fx in 10 years time. IMPRESSION: Osteopenia (T Score between -2.5 and -1). There is slightly increased risk of fracture and the patient may be considered for treatment. Re-Screen 2-5 years. NOTE: T-SCORE=SD OF THE YOUNG ADULT MEAN. [facility], , 03/07/2024 4:15 PM
== END | disposition home or self-care (01) ==
LOC: RADBDWWP 14:44
PROVIDERS: ATTEND Family Medicine
DX: S22.42XD Multiple fractures of ribs, left side, subsequent encounter for fracture with routine healing (principal)
CPT/HCPCS: 77080

== ENCOUNTER → 2024-05-16 | Outpatient (CLI) | payer MEDICARE ==
--- NOTE | 2024-05-22 12:16 | P.PCN ---
Date of Procedure: 05/16/24 Operative Findings: Home sleep study report Date of service is 05/16/2024 Pertinent history This is a 73-year-old female patient with known history of severe kyphoscoliosis of the thoracic and the lumbar spine along with history of rheumatoid arthritis with crippling deformities in her hands and joints. She is maintained immunosuppressive agents in the past without any significant benefits. She also has congestion heart failure with systolic dysfunction and ejection fraction of 35%. She has biventricular failure and moderate RV dilatation and severe pulmonary hypertension with a pulmonary artery pressures of 56 mmHg in addition to moderate mitral valve regurgitation and moderate to severe tricuspid valve regurgitation. She suffers from chronic A-fib. Her pulmonary function test showed a FEV1 of 76% of predicted and her baseline pulse ox is in the order of 91 to 93%. A home sleep study was ordered to rule out underlying sleep breathing disorder. The patient also has restrictive lung disease and of concern was DrMichael Alveolar hypoventilation/oxygen desaturation as the patient has severe kyphoscoliosis with secondary restrictive lung disease in addition. Pertinent physical findings The patient's weight is 156 pounds with a body mass index of 30.5 [place] score is at 16 Technical description The [employer] Ap[employer] system was used to complete his home sleep study. This is a type III home sleep study evaluation. The total recording duration was 8 hours and 45 minutes. The study started at 10:51 PM and ended at 7:37 AM. There was a total of 7 hours and 54 minutes of flow monitoring and there was also a total of 8 hours and 17 minutes of oxygen saturation monitoring. Results Respiratory analysis showed a total of 31 obstructive apneas and 78 obstructive hypopneas. The resulting AHI was 13.8 consistent with mild obstructive sleep apnea. Oxygenation analysis The patient's baseline pulse ox was measured to be at 96%. Average pulse ox during sleep was 92%. Minimum pulse ox was recorded to be at 64%. The patient spent approximately 53 minutes of the sleep time below pulse ox of 89% Cardiac evaluation Average heart rate was 86 with a minimum heart rate of 47 and the maximum heart rate of 231 Assessment Obstructive sleep apnea, mild in severity with an AHI of 13.8 Nocturnal oxygen desaturation, severe. The patient has some baseline hypoxemia related to her chronic restrictive lung disease and she encountered significant nocturnal oxygen desaturations probably due to combination of USHA and alveolar hypoventilation overnight. Restrictive lung disease CHF with impaired ejection fraction of 35% along with moderate mitral valve regurgitation and severe tricuspid regurgitation and secondary pulm hypertension Rheumatoid arthritis Kyphoscoliosis of the thoracolumbar spine Chronic hypersomnia with an [place] score of 16 Diabetes mellitus Diabetic peripheral neuropathy Chronic atrial fibrillation Hypertension Hyperlipidemia Plan Proceed with an in lab CPAP titration as the patient would benefit from CPAP therapy based on above-mentioned comorbidities.
== END ==
LOC: 3 N SLEEP 16:50
PROVIDERS: ATTEND Internal Medicine Critical Care Medicine
DX: G47.33 Obstructive sleep apnea (adult) (pediatric) (principal); I10 Essential (primary) hypertension; E11.42 Type 2 diabetes mellitus with diabetic polyneuropathy; G47.10 Hypersomnia, unspecified; E78.5 Hyperlipidemia, unspecified; I08.1 Rheumatic disorders of both mitral and tricuspid valves; I48.20 Chronic atrial fibrillation, unspecified; J98.4 Other disorders of lung; Z79.02 Long term (current) use of antithrombotics/antiplatelets; Z88.5 Allergy status to narcotic agent; Z91.041 Radiographic dye allergy status

== ENCOUNTER 2024-05-17 09:35 | Emergency (ER) | payer MEDICARE ==
[2024-05-17 09:48] VITALS: RESP 16
[2024-05-17] MEDS: ONDANSETRON 4 MG/2 ML VIAL IVP STA (09:48)
--- NOTE | 2024-05-17 09:55 | ED ---
General Adult HPI - General Chief complaint: Fall Stated complaint: FALL Time Seen by Provider: 05/17/24 09:36 Source: patient, RN notes reviewed, old records reviewed Mode of arrival: EMS Limitations: no limitations - History of Present Illness Initial comments: 73-year-old female history of atrial fibrillation and rheumatoid arthritis presenting for evaluation of fall with head injury. Patient is on Eliquis and fell off the toilet striking the left forehead above the eye. Patient denies any other injury. She states she has chronic pain and does have pain all over but states this is not from the fall today. No loss consciousness. - Related Data Home Medications Medication Instructions Recorded Confirmed Acetaminophen Tab [Tylenol] 500 mg PO Q6HR PRN 01/18/24 01/18/24 Apixaban [Eliquis] 5 mg PO BID 01/18/24 01/18/24 Aspirin 81 mg PO DIRECTED 01/18/24 01/18/24 Canagliflozin [Invokana] 300 mg PO DAILY 01/18/24 01/18/24 Cholecalciferol [Vitamin D3 (25 25 mcg PO DAILY 01/18/24 01/18/24 Mcg = 1000 Iu)] Clopidogrel [Plavix] 75 mg PO DAILY 01/18/24 01/18/24 Fenofibrate Nanocrystallized 145 mg PO DAILY 01/18/24 01/18/24 [Fenofibrate] Folic Acid 1 mg PO DAILY 01/18/24 01/18/24 Gabapentin [Neurontin] 200 mg PO HS 01/18/24 01/18/24 Insulin Lispro [humaLOG Kwikpen] 10 unit SQ AC-TID 01/18/24 01/18/24 Insulin Lispro [humaLOG Kwikpen] See Protocol SQ AC-TID 01/18/24 01/18/24 Latanoprost [Latanoprost 0.005%] 1 drop BOTH EYES HS 01/18/24 01/18/24 Melatonin 10 mg PO HS 01/18/24 01/18/24 Metoprolol Succinate (ER) [Toprol 100 mg PO BID 01/18/24 01/18/24 XL] Naloxone HCl [Narcan] 4 mg NASAL ONCE PRN 01/18/24 01/18/24 Nitroglycerin Sl Tabs [Nitrostat] 0.4 mg SUBLINGUAL Q5M PRN 01/18/24 01/18/24 Omeprazole [PriLOSEC] 20 mg PO AC-BRKFST 01/18/24 01/18/24 Sertraline [Zoloft] 100 mg PO DAILY 01/18/24 01/18/24 Simvastatin [Zocor] 20 mg PO HS 01/18/24 01/18/24 oxyCODONE-APAP 5-325MG [Percocet 1 tab PO DAILY 01/18/24 01/18/24 5-325 mg] Previous Rx's Medication Instructions Recorded Insulin Glargine,Hum.rec.anlog 15 units SQ HS #0 01/22/24 [Lantus Solostar Pen] Budesonide-Formot 160-4.5 Mcg 2 puff INHALATION BID #10.2 gm 01/27/24 [Symbicort 160-4.5 Mcg Inhaler] Furosemide [Lasix] 40 mg PO BID@0900,1600 #60 tab 01/27/24 Ipratropium/Albuter 20-100Mcg 1 puff INHALATION DAILY 30 Days #4 01/27/24 [Combivent Respimat 20-100Mcg gm Inhaler] Potassium Chloride [Klor-Con M10] 20 meq PO BID #120 tab 01/27/24 Sacubitril/Valsartan [Entresto 24 2 each PO BID #60 tab 01/27/24 mg-26 mg Tablet] Spironolactone [Aldactone] 50 mg PO DAILY #30 tab 01/27/24 Allergies Allergy/AdvReac Type Severity Reaction Status Date / Time codeine Allergy Rash/Hives Verified 05/17/24 09:37 iodine Allergy Rash/Hives Verified 05/17/24 09:37 Review of Systems ROS Statement: Those systems with pertinent positive or pertinent negative responses have been documented in the HPI. ROS Other: All systems not noted in ROS Statement are negative. Past Medical History Past Medical History: Atrial Fibrillation, Diabetes Mellitus, Hypertension Additional Past Medical History / Comment(s): extensive cardiac history per EMS History of Any Multi-Drug Resistant Organisms: None Reported Past Surgical History: No Surgical Hx Reported Past Psychological History: No Psychological Hx Reported Smoking Status: Former smoker Past Alcohol Use History: None Reported Past Drug Use History: None Reported General Exam Limitations: no limitations General appearance: alert, in no apparent distress Head exam: Present: other (Hematoma above the left eye) Eye exam: Present: PERRL, periorbital swelling, periorbital tenderness, other (Subconjunctival hemorrhage left eye) Neck exam: Present: normal inspection. Absent: tenderness Respiratory exam: Present: normal lung sounds bilaterally. Absent: respiratory distress, wheezes Cardiovascular Exam: Present: tachycardia, irregular rhythm GI/Abdominal exam: Present: soft. Absent: distended Extremities exam: Present: other (Dressing to the right foot and ankle from chronic wound. Clean dry and intact) Back exam: Present: normal inspection. Absent: tenderness, vertebral tenderness Neurological exam: Present: alert, oriented X3, CN II-XII intact. Absent: motor sensory deficit Skin exam: Present: warm, dry Course Vital Signs 05/17/24 05/17/24 09:37 10:16 Temperature 98.2 F Pulse Rate 92 93 Respiratory 16 16 Rate Blood Pressure 144/95 136/86 O2 Sat by Pulse 96 97 Oximetry Medical Decision Making - Medical Decision Making Was pt. sent in by a medical professional or institution (, PA, REAL ESTATE INTERN, urgent care, hospital, or [facility]...) When possible be specific @ -No Did you speak to anyone other than the patient for history (EMS, parent, family, police, friend...)? What history was obtained from this source @ -Discussed the care with the patient's daughter who is a ICU nurse and the patient's Did you review nursing and triage notes (agree or disagree)? Why? @ -I reviewed and agree with nursing and triage notes Were old charts reviewed (outside hosp., previous admission, EMS record, old EKG , old radiological studies, urgent care reports/EKG's, [facility] records)? Report findings @ -No old charts were reviewed Differential Diagnosis: Intracranial hemorrhage, skull fracture, traumatic injury from fall EKG interpreted by me (3pts min.). @ -Atrial fibrillation, rate controlled, ventricular rate of 93, QRS duration 98, QTc [address] segment elevation. X-rays interpreted by me (1pt min.). @Chest x-ray negative for acute displaced rib fracture, no pneumothorax CT interpreted by me (1pt min.). @ -CT brain is negative for intracranial hemorrhage, CT cervical spine negative for fracture or subluxation. There is a compression fracture of T7 visualized on CT. There is no point tenderness at this location on exam suspect this is old. U/S interpreted by me (1pt. min.). @ -None done What testing was considered but not performed or refused? (CT, X-rays, U/S, labs)? Why? @ -None What meds were considered but not given or refused? Why? @ -None Did you discuss the management of the patient with other professionals (professionals i.e. DrMichael, PA, REAL ESTATE INTERN, lab, RT, psych nurse, secondary social studies teacher, water treatment plant mechanic, teacher, consumer loan officer, case finisher)? Give summary @ -No Was smoking cessation discussed for >3mins.? @ -No Was critical care preformed (if so, how long)? @ -No Were there social determinants of health that impacted care today? How? (Homelessness, low income, unemployed, alcoholism, drug addiction, transportation, low edu. Level, literacy, decrease access to med. care, penitentiary, r ehab)? @ -No Was there de-escalation of care discussed even if they declined (Discuss DNR or withdrawal of care, Hospice)? DNR status @ -No What co-morbidities impacted this encounter? (DM, HTN, Smoking, COPD, CAD, Cancer, CVA, ARF, Chemo, Hep., AIDS, mental health diagnosis, sleep apnea, morbid obesity)? @ -Rheumatoid arthritis Was patient admitted / discharged? Hospital course, mention meds given and route, prescriptions, significant lab abnormalities, going to OR and other pertinent info. @ -[73-year-old female fall from toilet with left frontal head injury, large hematoma above the left eye. The extraocular motions are intact. There is some conjunctival hemorrhage, no proptosis. No other pain complaints including neck or back pain. CT brain is negative for intracranial hemorrhage there is an incidental finding of a T7 fracture. There is no point tenderness on exam at this location. Patient reevaluated pain is improved, patient does wish to be discharged. She has good family support. Undiagnosed new problem with uncertain prognosis? @ -No Drug Therapy requiring intensive monitoring for toxicity (Heparin, Nitro, Insulin, Cardizem)? @ -No Were any procedures done? @ -No Diagnosis/symptom? @ -Fall, concussion, forehead hematoma Acute, or Chronic, or Acute on Chronic? @ -Acute Uncomplicated (without systemic symptoms) or Complicated (systemic symptoms)? @ -Default Side effects of treatment? @ -No Exacerbation, Progression, or Severe Exacerbation? @ -No Poses a threat to life or bodily function? How? (Chest pain, [place], [place], pneumonia, PE, COPD, DKA, ARF, appy, cholecystitis, CVA, Diverticulitis, Homicidal, Suicidal, threat to staff... and all critical care pts) @ -[Low risk at this time - Lab Data Result diagrams: 05/17/24 10:05 05/17/24 10:05 Lab Results 05/17/24 05/17/24 Range/Units 10:05 10:05 WBC 5.3 (3.8-10.6) k/uL RBC 4.75 (3.80-5.40) m/uL Hgb 12.8 (11.4-16.0) gm/dL Hct 40.0 (34.0-46.0) % MCV 84.2 (80.0-100.0) fL MCH 26.9 (25.0-35.0) pg MCHC 32.0 (31.0-37.0) g/dL RDW 16.7 H (11.5-15.5) % Plt Count 150 (150-450) k/uL MPV 9.3 Neutrophils % 73 % Lymphocytes % 14 % Monocytes % 9 % Eosinophils % 2 % Basophils % 1 % Neutrophils # 3.9 (1.3-7.7) k/uL Lymphocytes # 0.7 L (1.0-4.8) k/uL Monocytes # 0.5 (0-1.0) k/uL Eosinophils # 0.1 (0-0.7) k/uL Basophils # 0.1 (0-0.2) k/uL Hypochromasia Slight Anisocytosis Slight Sodium 138 (137-145) mmol/L Potassium 4.8 (3.5-5.1) mmol/L Chloride 107 (98-107) mmol/L Carbon Dioxide 25 (22-30) mmol/L Anion Gap 6 mmol/L BUN 45 H (7-17) mg/dL Creatinine 1.28 H (0.52-1.04) mg/dL Est GFR (CKD-EPI)AfAm 49 (>60 ml/min/1.73 sqM) Est GFR (CKD-EPI)NonAf 42 (>60 ml/min/1.73 sqM) Glucose 194 H (74-99) mg/dL Calcium 9.0 (8.4-10.2) mg/dL Total Bilirubin 0.4 (0.2-1.3) mg/dL AST 41 H (14-36) U/L ALT 18 (4-34) U/L Alkaline Phosphatase 276 H (38-126) U/L Total Protein 6.3 (6.3-8.2) g/dL Albumin 3.3 L (3.5-5.0) g/dL Disposition Clinical Impression: Fall, Concussion, Hematoma Disposition: HOME SELF-CARE Condition: Fair Instructions (If sedation given, give patient instructions): Fall Prevention for Older Adults (ED), Concussion (ED), Hematoma (ED) Is patient prescribed a controlled substance at d/c from ED?: No Referrals: None,Stated [REFERRING] - 1-2 days Time of Disposition: 11:43
--- NOTE | 2024-05-17 10:03 | CT ---
EXAMINATION TYPE: CT brain cspine wo con DATE OF EXAM: 05/17/2024 9:51 AM COMPARISON: Brain 01/18/2024 CLINICAL INDICATION: Female, 73 years old with history of fall on thinners, pain, left periorbital he matoma, FALL ON THINNERS/SWELLING ABOVE LEFT ORBIT, Technique: Examination of the head was done in axial plane without intravenous contrast. Coronal and sagittal reconstructions performed. CT of the cervical spine was obtained in axial plane without intravenous injection of contrast mater ial. Coronal and sagittal reformatted images were obtained from the axial views for evaluation of f ractures, spinal alignment and canal. CT DLP: 1548 mGycm, Automated exposure control for dose reduction was used. FINDINGS: Head: There is no evidence of acute intracranial hemorrhage, acute ischemic changes, mass, mass-effect, or extra-axial fluid collection. There is no effacement of cerebral sulci or basal subarachnoid cister ns. There is no hydrocephalus. There is no midline shift. Juan-white matter distinction is preserv ed. Moderate patchy white matter hypodensities in both cerebral hemispheres. There is a large anterior left frontal/left supraorbital scalp hematoma. No underlying calvarial frac ture. A 9 mm mucosal retention cyst left frontal sinus is unchanged. Trace mucosal thickening ethmoid air c ells. Mastoid air cells well pneumatized. Orbits and globes appear intact. Cervical spine: No craniocervical junction abnormality, or dental space widening, or prevertebral soft tissue swellin g. Degenerative change at the C1 dens articulation. Hypertrophic facet arthropathy especially towards the left in the mid and lower cervical spine. Scatt ered posterior disc bulging is present throughout but alignment is preserved. Detailed assessment of the spinal canal is limited by CT especially due to excessive malaise artifact . Severe degenerative change left glenohumeral joint. Old left-sided rib fracture deformities. Possible subacute, mildly displaced fractures right posterolateral fourth, fifth, and seventh ribs. C linically correlate. Otherwise, no acute fracture seen of the cervical spine There is a compression deformity of T7 with mild retropulsion into the ventral spinal canal. Approxim ately 60% anterior height loss. Sagittal and coronal reformatted images confirm above findings. COMBINED IMPRESSION: 1. Large anterior left frontal/supraorbital scalp hematoma. No underlying calvarial fracture or acute intracranial abnormality seen. Background moderate burden of chronic small vessel ischemic disease. 2. Incidentally seen compression fracture of T7 with mild retropulsion into the ventral spinal canal. 60% anterior height loss. Acute or subacute fracture is not excluded. Correlate for any focal pain a t this level. 3. Suspect additional subacute fractures right posterolateral fourth, fifth, and seventh ribs. Again, correlate for any focal pain here. 4. Mild spondylotic change of the cervical spine without acute fracture or malalignment. [facility], Workstation: [facility], 05/17/2024 10:00 AM
[2024-05-17] MEDS: HYDROmorphone 1 MG/ML 1 ML SYRINGE IVP STA (10:09)
[2024-05-17 10:15] LABS: Anisocytosis Slight; Basophils # (A) 0.1 k/uL (0-0.2); Basophils % (A) 1 %; Eosinophils # (A) 0.1 k/uL (0-0.7); Eosinophils % (A) 2 %; HGB 12.8 gm/dL (11.4-16.0); Hypochromasia Slight; Lymphocytes # (A) 0.7 k/uL (1.0-4.8); Lymphocytes % (A) 14 %; MCH 26.9 pg (25.0-35.0); MCV 84.2 fL (80.0-100.0); Mean Platelet Volume 9.3; Monocytes # (A) 0.5 k/uL (0-1.0); Monocytes % (A) 9 %; Neutrophils # (A) 3.9 k/uL (1.3-7.7); Neutrophils % (A) 73 %; Platelet Count 150 k/uL (150-450); RBC 4.75 m/uL (3.80-5.40); RDW 16.7 % (11.5-15.5); WBC 5.3 k/uL (3.8-10.6)
[2024-05-17 10:35] LABS: ALT 18 U/L (4-34); AST 41 U/L (14-36); African American GFR (CKD) 49 (>60 ml/min/1.73 sqM); Albumin 3.3 g/dL (3.5-5.0); Alkaline Phosphatase 276 U/L (38-126); Anion Gap 6 mmol/L; Blood Urea Nitrogen 45 mg/dL (7-17); Carbon Dioxide 25 mmol/L (22-30); Chloride 107 mmol/L (98-107); Glucose 194 mg/dL (74-99); Non-African American GFR(CKD) 42 (>60 ml/min/1.73 sqM); Potassium 4.8 mmol/L (3.5-5.1); Sodium 138 mmol/L (137-145); Total Bilirubin 0.4 mg/dL (0.2-1.3); Total Protein 6.3 g/dL (6.3-8.2)
--- NOTE | 2024-05-17 10:59 | XR ---
EXAMINATION TYPE: XR chest 1V portable DATE OF EXAM: 05/17/2024 10:43 AM COMPARISON: 01/25/2024 CLINICAL INDICATION: Female, 73 years old with history of Pain, , FINDINGS: Heart mild to moderately enlarged. Rightward patient rotation with low lung volumes. Old left-sided l ateral rib fracture deformities. Diffuse interstitial density. Some mild patchy bibasilar density. IMPRESSION: 1. Hypoventilatory changes and rotation limiting assessment. 2. There is [id number] cardiomegaly and interstitial density, possible mild CHF with pulmonary vascular congestion. 3. Mild patchy bibasilar opacities likely atelectasis given low lung volumes. [facility], , 05/17/2024 10:57 AM
[2024-05-17 12:01] VITALS: BP 143/98; PULSE 90; TEMP 97.9
== END 2024-05-17 12:41 | disposition home or self-care (01) ==
LOC: EC 09:35
DX: S06.0X0A Concussion without loss of consciousness, initial encounter (principal); H57.89 Other specified disorders of eye and adnexa; M06.9 Rheumatoid arthritis, unspecified; Z87.891 Personal history of nicotine dependence; Z88.5 Allergy status to narcotic agent; Z88.4 Allergy status to anesthetic agent; W18.11XA Fall from or off toilet without subsequent striking against object, initial encounter
CPT/HCPCS: 36415; 93005; 80053; 85025; 71045; 72125; 70450; 99285; 96374; 96375; J2405; J1171

== ENCOUNTER 2024-07-26 06:10 | Day surgery (SDC) | payer MEDICARE ==
[~2024-07-26 06:10] MED LIST: BENZOCAINE SPRAY 1 EACH MM SCH; MIDAZOLAM 2 MG/2 ML VIAL IV PRN; fentaNYL (PF) 50 MCG/ML 5 ML AMP IVP PRN
[2024-07-26] MEDS: SODIUM CHLORIDE 0.9% 500 ML 500 ML IV SCH (06:45)
[2024-07-26 06:55] LABS: Glucose,Whole Blood 155 mg/dL (70-110)
[2024-07-26 07:08] VITALS: RESP 16; TEMP 98.3
[2024-07-26] MEDS: IV FLUID CONTINUATION 1,000 ML IV ONE (07:10)
[2024-07-26] MEDS: BENZOCAINE SPRAY 1 EACH MM ONE (07:59)
[2024-07-26] MEDS: MIDAZOLAM 2 MG/2 ML VIAL IVP ONE (07:59)
[2024-07-26] MEDS: fentaNYL (PF) 50 MCG/ML 2 ML AMP IVP ONE (08:01)
--- NOTE | 2024-07-26 08:39 | P.TEE ---
Date of Procedure: 07/26/24 Description of Procedure(s): Procedure performed: 1. Transesophageal Echocardiogram with color flow doppler, pulsed wave doppler and continuous wave doppler, (CPT 61859, +[id number], [id number]) 2. Moderate conscious sedation. Sedation time [15] mins. (CPT 48636) Indications: Persistent atrial fibrillation, post watchman evaluation of left atrial appendage before cardioversion Consent: I have discussed the risks, benefits and alternative therapies for the above-mentioned procedure. The patient has indicated understanding and acceptance of the risks of the procedure. Signed consent was obtained and was placed in the paper chart. Procedural Steps: Timeout was performed in usual fashion. Patient's heart rate, blood pressure, oxygen saturation and ECG were monitored. Benzocaine was sprayed liberally in the back of the throat. Bite block was placed between the jaw. 2 mg of Versed and [50] mcg of Fentanyl were administered intravenously. After achieving appropriate moderate conscious sedation, KARLOS probe was advanced without difficulty and without any immediate complications to the esophagus. KARLOS study was performed with color flow doppler, pulsed wave doppler and continuous wave doppler. The probe was then removed. Patient tolerated the procedure well. Patient was transferred to the post procedure area in stable and satisfactory condition. Throughout the procedure patient's heart rate, blood pressure, oxygen saturation and ECG were monitored. Total sedation time 15 mins. Complications: none FINDINGS Left Atrium: Severe left atrial dilatation with no evidence of thrombus. Evidence of spontaneous echogenic contrast. Evidence of elevated LA filling pressures. Reversal of S/D ratio in pulmonic vein suggestive of diastolic dysfunction. Left Atrial Appendage: Watchman device in place. No leak across Watchman device in left atrial appendage. Small epithelial growth noticed on the surface of Watchman. No clear evidence of thrombus however. Inter atrial septum: Small evidence of iatrogenic PFO in middle of interatrial septum. Septal bulge from left to right side suggestive of elevated LA filling pressures. Left Ventricle: Normal global LV size and systolic function Right Atrium: Normal overall RA size Right Ventricle: Normal global RV size and systolic function Aortic Valve: Structurally normal Trileaflet, mild calcific degeneration, trace aortic regurgitation. No significant stenosis by color-flow. Mitral Valve: Struturally normal. Mild functional mitral regurgitation. Slightly dilated. Pulmonic Valve: Not well visualized. Tricuspid Valve: Mild to moderate tricuspid regurgitation. Ascending aorta, Aortic root and Aortic arch: Normal size aortic root and ascending aorta. Mild intimal thickening. Descending aorta: Mild intimal thickening. Mild calcific plaque noticed No pericardial effusion CONCLUSION: Watchman device in place with no leak across in left atrial appendage. Small epithelial growth noticed on Watchman device however no clear evidence of device related thrombus Severe LA dilatation with elevated LA filling pressures Reversal of S/D ratio in pulmonic vein suggestive of diastolic dysfunction Mild functional mitral regurgitation Plan for cardioversion by Dr. Bermudez in next 1 to 2 weeks. Would recommend anticoagulation 1 week before the procedure and would continue at least for 4 to 6 weeks. Recommend further HFpEF management. 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 Chang Richmond MD, RPVI, FACC Thank you for allowing [facility] to participate in this patient's care. Feel free to reach out in case of any followup questions.
[2024-07-26 10:23] VITALS: BP 130/64; PULSE 89
== END 2024-07-26 09:46 | disposition home or self-care (01) ==
LOC: CATHCVL 06:10
PROVIDERS: ATTEND Student in an Organized Health Care Education/Training Program
DX: I48.20 Chronic atrial fibrillation, unspecified (principal); I42.0 Dilated cardiomyopathy; I11.0 Hypertensive heart disease with heart failure; I50.23 Acute on chronic systolic (congestive) heart failure; J44.9 Chronic obstructive pulmonary disease, unspecified; E11.9 Type 2 diabetes mellitus without complications; E78.5 Hyperlipidemia, unspecified; F17.210 Nicotine dependence, cigarettes, uncomplicated; Z82.49 Family history of ischemic heart disease and other diseases of the circulatory system; Z91.041 Radiographic dye allergy status; Z88.5 Allergy status to narcotic agent; Z88.8 Allergy status to other drugs, medicaments and biological substances; Z79.82 Long term (current) use of aspirin; Z79.01 Long term (current) use of anticoagulants; Z79.51 Long term (current) use of inhaled steroids; Z79.899 Other long term (current) drug therapy
CPT/HCPCS: 93312; 93320; 93325; 99152; J2250; J3010